=== PATIENT | female | born 1985 | race Caucasian/White ===

== ENCOUNTER 2016-09-15 14:48 | Emergency (ER) | payer SELFPAY ==
[2016-09-15] MEDS ORDERED: IPRATROPIUM/ALBUTEROL 3 ML VIAL NEB ONE (15:17)
--- NOTE | 2016-09-15 15:20 | ED.PDOC ---
History of Present Illness - General Chief Complaint: Respiratory Problem Stated Complaint: cough,poss fever Time Seen by Provider: 09/15/16 15:17 Source: patient Exam Limitations: no limitations - History of Present Illness Comments: PT REPORTS FEW DAY HISTORY OF COUGH AND PLEURITIC CHEST PAIN. PT REPORTS SICK CONTACT AT WORK. PT HAS HISTORY OF ASTHMA AND HAS BEEN USING NEBS AT HOME NEEDED. Cough Quality/Degree: moderate, productive cough Possible Cause: illness exposure Improving Factors: nothing Worsening Factors: nothing Associated Symptoms: chest pain/soreness, fever/chills, shortness of breath Respiratory Risk Factors: exposure to illness Allergies/Adverse Reactions: Allergies Sulfa Drugs Allergy (Intermediate, Verified 04/08/16 21:05) Levofloxacin [From Levaquin] Allergy (Verified 04/08/16 21:05) Home Medications: Ambulatory Orders Azithromycin [Zithromax Z-Steven] 1 ea PO DAILY #1 pack 09/15/16 Benzonatate Perles [Tessalon Perles] 100 mg PO TID PRN #20 cap 09/15/16 Review of Systems - Review of Systems Constitutional: States: see HPI, chills, fever Respiratory: States: see HPI, cough, short of breath Cardiology: States: see HPI, chest pain. Denies: palpitations Gastrointestinal/Abdominal: Denies: abdominal pain, constipation Musculoskeletal: Denies: back pain, muscle pain Skin: Denies: change in color, lesions Past Medical History (General) - Patient Medical History Hx Seizures: No Hx Stroke: No Hx Dementia: No Hx Asthma: Yes Hx of COPD: No Hx Cardiac Disorders: No Hx Congestive Heart Failure: No Hx Pacemaker: No Hx Hypertension: No Hx Thyroid Disease: No Hx Diabetes: No Hx Gastroesophageal Reflux: No Hx Renal Disease: No Hx Cancer: No Hx of HIV: No Hx Hepatitis C: No Hx MRSA: No Other Surgeries:: - Vaccination History Hx Tetanus, Diphtheria Vaccination: Yes Hx Influenza Vaccination: Yes Hx Pneumococcal Vaccination: No - Social History Hx Tobacco Use: No Hx Chewing Tobacco Use: No Hx Alcohol Use: No Hx Substance Use: No Hx Substance Use Treatment: No Hx Depression: No Hx Physical Abuse: No Hx Emotional Abuse: No Hx Suspected Abuse: No - Female History Patient : No Family Medical History - Family History Mother Living Status: Still Living Hx Family Hypertension: Yes Hx Family Diabetes: Yes Physical Exam - Physical Exam General Appearance: Alert, No apparent distress ENT Exam: normal ENT inspection Neck: non-tender, full range of motion Respiratory: no respiratory distress, other - COARSE BREATH SOUNDS Cardiovascular/Chest: regular rate, rhythm, no murmur Gastrointestinal/Abdominal: non tender, soft Neurologic: normal mood/affect, oriented x 3 Skin Exam: normal color, warm/dry Progress - Progress Progress: 09/15/16 15:54 PT REPORTS SOME IMPROVEMENT AFTER NEB IN THE ED. CXR FINDINGS DISCUSSED WITH PT. WITH PLACE PT ON Z PACK AND RECOMMEND CONTINUED NEBS AT HOME NEEDED. Departure - Departure Clinical Impression: Bronchitis Time of Disposition: 15:55 Disposition: Discharge to Home or Self Care Condition: Good Departure Forms: ED Discharge - Pt. Copy, Patient Portal Self Enrollment Instructions: DI for Bronchiolitis Diet: resume usual diet Prescriptions: Benzonatate Perles [Tessalon Perles] 100 mg PO TID PRN #20 cap PRN Reason: Cough Azithromycin [Zithromax Z-Steven] 1 ea PO DAILY #1 pack Home Medications: Ambulatory Orders Azithromycin [Zithromax Z-Steven] 1 ea PO DAILY #1 pack 09/15/16 Benzonatate Perles [Tessalon Perles] 100 mg PO TID PRN #20 cap 09/15/16
--- NOTE | 2016-09-15 15:42 | RAD ---
EXAM DESCRIPTION: XR CHEST 1 VIEW CLINICAL HISTORY: COUGH/SOB COMPARISON: August 31, 2012 FINDINGS: The cardiomediastinal silhouette is unremarkable. There is no airspace consolidation or pleural effusion. The bronchovascular markings are within normal limits. The lung volumes are at the upper limits of normal range. There is no pneumothorax or acute fracture. IMPRESSION: No pneumonia or other acute intrathoracic abnormality. Upper normal lung volumes. The possibility of asthma should be considered. Electronically signed by: Molina Butler DO 09/15/2016 15:40
[2016-09-15 16:00] VITALS: O2SAT 100
[2016-09-15 16:07] VITALS: BP 102/71; TEMP 97.8
== END 2016-09-15 16:04 | disposition home or self-care (01) ==
LOC: ER 14:48
DX: J40 Bronchitis, not specified as acute or chronic (principal); Z88.2 Allergy status to sulfonamides; Z88.3 Allergy status to other anti-infective agents; J45.909 Unspecified asthma, uncomplicated; Z79.899 Other long term (current) drug therapy
CPT/HCPCS: 71010; 94640; J7620

== ENCOUNTER 2017-05-21 17:35 | Emergency (ER) | payer SELFPAY ==
[2017-05-21 18:35] VITALS: TEMP 98.6
--- NOTE | 2017-05-21 18:36 | ED.PDOC ---
History of Present Illness - General Chief Complaint: Lower Extremity Injury Stated Complaint: left foot pain Time Seen by Provider: 05/21/17 18:34 Source: patient, RN notes reviewed, Vital Signs reviewed Exam Limitations: no limitations - History of Present Illness Initial Comments: Patient comes in with pain on the top of her foot. 3 days ago a ramp @ the loading dock fell onto her foot. She has been treating with ice and elevation but still swollen and painful. She is also having some numbness in her toes and bruising along the side of her great toe. Occurred: other - 3 days ago Pain - Lower Extremity: moderate: Left Foot Method of Injury: direct blow Improving Factors: cold therapy, rest Worsening Factors: movement Allergies/Adverse Reactions: Allergies Sulfa Drugs Allergy (Intermediate, Verified 05/21/17 18:35) Levofloxacin [From Levaquin] Allergy (Verified 05/21/17 18:35) Home Medications: Ambulatory Orders Azithromycin [Zithromax Z-Steven] 1 ea PO DAILY #1 pack 09/15/16 Benzonatate Perles [Tessalon Perles] 100 mg PO TID PRN #20 cap 09/15/16 Review of Systems - Review of Systems Constitutional: States: no symptoms reported Respiratory: States: no symptoms reported Cardiology: States: no symptoms reported Musculoskeletal: States: see HPI Skin: States: see HPI Neurological: States: numbness. Denies: headache, paresthesia, tingling, weakness All other Systems: No Change from Baseline Past Medical History (General) - Patient Medical History Hx Seizures: No Hx Stroke: No Hx Dementia: No Hx Asthma: Yes Hx of COPD: No Hx Cardiac Disorders: No Hx Congestive Heart Failure: No Hx Pacemaker: No Hx Hypertension: No Hx Thyroid Disease: No Hx Diabetes: No Hx Gastroesophageal Reflux: No Hx Renal Disease: No Hx Cancer: No Hx of HIV: No Hx Hepatitis C: No Hx MRSA: No - Vaccination History Hx Tetanus, Diphtheria Vaccination: Yes Hx Influenza Vaccination: Yes Hx Pneumococcal Vaccination: No - Social History Hx Tobacco Use: No Hx Chewing Tobacco Use: No Hx Alcohol Use: No Hx Substance Use: No Hx Substance Use Treatment: No Hx Depression: No Hx Physical Abuse: No Hx Emotional Abuse: No Hx Suspected Abuse: No - Female History Patient : No Family Medical History - Family History Mother Living Status: Still Living Hx Family Hypertension: Yes Hx Family Diabetes: Yes Physical Exam - Physical Exam General Appearance: Alert, Comfortable, No apparent distress, Well Developed, Well Groomed, Well Hydrated, Well Nourished Cardiovascular/Respiratory: normal peripheral pulses, no respiratory distress Leg: normal inspection, non-tender, no evidence of injury, normal ROM Knee: normal inspection Ankle: normal inspection, non-tender, no evidence of injury, normal ROM Foot: bone tenderness, ecchymosis, limited ROM, soft tissue tenderness, swelling , other - Dorsum of L foot is swollen, tender and bruised. Moves all toes but limited due to pain. Brisck capillary refill all toes. Bruising along side of great toe. Neuro/Tendon: normal motor functions, normal tendon functions, responds to pain , no evidence tendon injury, sensory deficit - Slightly decreased sensation to light touch of toes. Mental Status: alert, oriented x 3 Skin: normal color - Normal except for L foot, warm/dry Comments: Vital Signs 05/21/17 18:25 Temperature 98.6 F Pulse Rate [ 78 pulse ox] Respiratory 18 Rate Blood Pressure 115/75 [Left Arm] O2 Sat by Pulse 98 Oximetry Progress - EKG/XRAY/CT XRAY: L foot: No fracture per Radiologist Departure - Departure Clinical Impression: Contusion of foot, left Qualifiers: Encounter type: initial encounter Qualified Code(s): S90.32XA - Contusion of left foot, initial encounter Time of Disposition: 19:27 Disposition: Discharge to Home or Self Care Condition: Good Departure Forms: ED Discharge - Pt. Copy, Patient Portal Self Enrollment Instructions: DI for Contusion Diet: resume usual diet Activity: increase activity as tolerated Referrals: Bernie Seaman NP [Primary Care Provider] - 1-2 Weeks Home Medications: Ambulatory Orders Azithromycin [Zithromax Z-Steven] 1 ea PO DAILY #1 pack 09/15/16 Benzonatate Perles [Tessalon Perles] 100 mg PO TID PRN #20 cap 09/15/16
--- NOTE | 2017-05-21 19:14 | RAD ---
EXAM DESCRIPTION: Foot,Left 3 Views CLINICAL HISTORY: 31 years ,Female Loading ramp dropped on her foot, pain COMPARISON: None. TECHNIQUE: LEFT foot, Three view FINDINGS: No acute fractures or dislocations are identified. No osseous destructive lesions. No radiopaque foreign object noted. There is deformity of the head of the fifth metatarsal which likely reflects a chronic injury. No significant ankle effusion noted. IMPRESSION: No acute fracture or dislocation is identified. Electronically signed by: Nola Briceno 05/21/2017 7:13 PM CDT
[2017-05-21 19:32] VITALS: BP 112/70; O2SAT 99
== END 2017-05-21 19:34 | disposition home or self-care (01) ==
LOC: ER 17:35
DX: S90.32XA Contusion of left foot, initial encounter (principal); Z88.2 Allergy status to sulfonamides; Z88.3 Allergy status to other anti-infective agents; W20.8XXA Other cause of strike by thrown, projected or falling object, initial encounter; Y92.9 Unspecified place or not applicable

== ENCOUNTER 2018-02-22 13:23 | Emergency (ER) | payer MEDICAID, OTHER ==
[2018-02-22] MEDS ORDERED: KETOROLAC TROMETHAMINE INJ 30 MG/ML VIAL IV ONE (15:01)
[2018-02-22] MEDS ORDERED: DEXAMETHASONE INJ 4 MG/ML VIAL IV ONE (15:01)
[2018-02-22] MEDS ORDERED: LACTATED RINGERS 1,000 ML IVS ONE (15:01)
[2018-02-22] MEDS ORDERED: PROMETHAZINE HCL INJ 25 MG/ML VIAL IM ONE (15:01)
--- NOTE | 2018-02-22 15:01 | ED.PDOC ---
History of Present Illness - General Chief Complaint: Headache Stated Complaint: Headache Time Seen by Provider: 02/22/18 14:42 Source: patient - History of Present Illness Initial Comments: Carole Gonsalez 32 y/o female stated that she has dull headache on her left side head and earache for the last 2 days not getting chuck.No blurry vision ,no fever ,no chills. Timing/Duration: other - 2 days Severity: moderate Improving Factors: nothing Worsening Factors: nothing Associated Symptoms: cough Allergies/Adverse Reactions: Allergies Sulfa Drugs Allergy (Intermediate, Verified 05/21/17 18:35) Levofloxacin [From Levaquin] Allergy (Verified 05/21/17 18:35) Home Medications: Ambulatory Orders Azithromycin [Zithromax Z-Steven] 1 ea PO DAILY #1 pack 09/15/16 Benzonatate Perles [Tessalon Perles] 100 mg PO TID PRN #20 cap 09/15/16 Azithromycin [Zithromax Z-Steven] 1 ea PO DAILY #1 pack 02/22/18 Promethazine Tab [Phenergan Tablet] 25 mg PO .Q4H #14 tab 02/22/18 predniSONE 10 mg PO BID #10 tab 02/22/18 Review of Systems - Review of Systems Constitutional: States: no symptoms reported EENTM: States: no symptoms reported Respiratory: States: no symptoms reported Neurological: States: headache All other Systems: Reviewed and Negative, No Change from Baseline Past Medical History (General) - Patient Medical History Hx Seizures: No Hx Stroke: No Hx Dementia: No Hx Asthma: Yes Hx of COPD: No Hx Cardiac Disorders: No Hx Congestive Heart Failure: No Hx Pacemaker: No Hx Hypertension: No Hx Thyroid Disease: No Hx Diabetes: No Hx Gastroesophageal Reflux: No Hx Renal Disease: No Hx Cancer: No Hx of HIV: No Hx Hepatitis C: No Hx MRSA: No Surgical History: no surgical history - Vaccination History Hx Tetanus, Diphtheria Vaccination: Yes Hx Influenza Vaccination: Yes - 2017 Hx Pneumococcal Vaccination: No - Social History Hx Tobacco Use: Yes Hx Chewing Tobacco Use: No Hx Alcohol Use: No Hx Substance Use: No Hx Substance Use Treatment: No Hx Depression: No Hx Physical Abuse: No Hx Emotional Abuse: No Hx Suspected Abuse: No - Activities of Daily Living Patient Lives Alone: No - Female History Patient : No - IUD Family Medical History - Family History Mother Living Status: Still Living Hx Family Hypertension: Yes Hx Family Diabetes: Yes Physical Exam - Physical Exam General Appearance: Anxious, No apparent distress Eye Exam: bilateral normal Ears, Nose, Throat: hearing grossly normal, normal ENT inspection, normal pharynx, abnormal TM (L) - grayish looking Neck: non-tender, supple, other - no meningeal signs Respiratory: lungs clear, normal breath sounds Cardiovascular/Chest: normal peripheral pulses, regular rate, rhythm, no murmur Peripheral Pulses: radial,right: 2+, radial,left: 2+ Gastrointestinal/Abdominal: normal bowel sounds, non tender, soft, no organomegaly Back Exam: normal inspection, no CVA tenderness, no vertebral tenderness Extremity: no pedal edema, no calf tenderness Neurologic: alert, oriented x 3 Skin Exam: normal color, warm/dry Progress - Progress Progress: 02/22/18 16:51 Vital Signs - 24 hr 02/22/18 13:39 Temperature 98.5 F Pulse Rate [ 81 Left Radial] Respiratory 20 Rate Blood Pressure 126/81 [Left Arm] O2 Sat by Pulse 98 Oximetry - Results/Orders Results/Orders: 02/22/18 15:01 URINALYSIS Stat Laboratory Results - last 24 hr 02/22/18 02/22/18 13:50 13:50 WBC 4.3 L RBC 4.04 L Hgb 12.8 Hct 37.0 MCV 91.7 MCH 31.6 H MCHC 34.5 RDW 11.8 Plt Count 194 MPV 9.1 Absolute Neuts (auto) 2.20 Absolute Lymphs (auto) 1.60 Absolute Monos (auto) 0.50 Absolute Eos (auto) 0.00 Absolute Basos (auto) 0.10 Neutrophils % 50.7 Lymphocytes % 35.9 Monocytes % 11.4 H Eosinophils % 0.6 L Basophils % 1.4 Sodium 140 Potassium 3.2 L Chloride 108 Carbon Dioxide 26 Anion Gap 9.2 L BUN 6 L Creatinine 0.76 BUN/Creatinine Ratio 7.9 L Random Glucose 82 Serum Osmolality 276.1 Calcium 8.9 Total Bilirubin 0.7 AST 13 ALT 9 L Alkaline Phosphatase 37 L Serum Total Protein 6.9 Albumin 4.1 Globulin 2.8 Albumin/Globulin Ratio 1.5 Departure - Departure Clinical Impression: Headache Qualifiers: Headache type: unspecified Headache chronicity pattern: unspecified pattern Intractability: not intractable Qualified Code(s): R51 - Headache Middle ear effusion Qualifiers: Laterality: left Qualified Code(s): H65.92 - Unspecified nonsuppurative otitis media, left ear Time of Disposition: 16:53 Disposition: Discharge to Home or Self Care Condition: Good Departure Forms: ED Discharge - Pt. Copy, Patient Portal Self Enrollment Instructions: DI for Headache Referrals: Bernie Seaman NP [Primary Care Provider] - 1-2 Weeks Prescriptions: Azithromycin [Zithromax Z-Steven] 1 ea PO DAILY #1 pack predniSONE 10 mg PO BID #10 tab Promethazine Tab [Phenergan Tablet] 25 mg PO .Q4H #14 tab Home Medications: Ambulatory Orders Azithromycin [Zithromax Z-Steven] 1 ea PO DAILY #1 pack 09/15/16 Benzonatate Perles [Tessalon Perles] 100 mg PO TID PRN #20 cap 09/15/16 Azithromycin [Zithromax Z-Steven] 1 ea PO DAILY #1 pack 02/22/18 Promethazine Tab [Phenergan Tablet] 25 mg PO .Q4H #14 tab 02/22/18 predniSONE 10 mg PO BID #10 tab 02/22/18 Additional Instructions: Follow up with primary Md 23 February 2018 as needed
[2018-02-22] MEDS ORDERED: ORPHENADRINE CITRATE 30 MG/ML AMP IV ONE (15:03)
[2018-02-22 17:24] VITALS: BP 109/73; TEMP 99.3; O2SAT 95
== END 2018-02-22 17:05 | disposition home or self-care (01) ==
LOC: ER 13:23
DX: R51 Headache (principal); H65.92 Unspecified nonsuppurative otitis media, left ear; J45.909 Unspecified asthma, uncomplicated; F17.200 Nicotine dependence, unspecified, uncomplicated; Z88.2 Allergy status to sulfonamides; Z88.1 Allergy status to other antibiotic agents
CPT/HCPCS: 36415; 80053; 85025; J1100; J1885; J2360; J2550; J7120

== ENCOUNTER 2018-03-02 07:51 | Emergency (ER) | payer MEDICAID, OTHER ==
[2018-03-02 08:21] VITALS: TEMP 98
--- NOTE | 2018-03-02 08:34 | ED.PDOC ---
History of Present Illness - General Chief Complaint: ENT Problem Stated Complaint: L ear discomfort Time Seen by Provider: 03/02/18 08:21 Source: patient Exam Limitations: no limitations - History of Present Illness Initial Comments: patient comes in with left sided ear and posterior ear pain. Patient states it started last when she came to the emergency room was given antibiotics for an ear infection. Patient states it has not improved despite steroids and azithromycin. Patient states the pain is still moderate in severity with nothing improving. It is worse with touch to the area. Patient states the pain is now going all the way down her jaw and she is not getting any relief. She has had some subjective fever no chills no nausea or vomiting. She is otherwise in her usual state of health. She does have a history of asthma and bronchitis. She has had 3 C-sections and tympanostomy tubes with a history of recurrent ear infections in that left ear. Patient does use the IUD for control. Timing/Duration: gradual EENT Location: ear (L) Prearrival Treatment: prescription meds Improving Factors: nothing Worsening Factors: other - touch Associated Symptoms: fever Allergies/Adverse Reactions: Allergies Sulfa Drugs Allergy (Intermediate, Verified 03/02/18 08:38) Levofloxacin [From Levaquin] Allergy (Verified 03/02/18 08:38) Home Medications: Ambulatory Orders NK [NK] 03/02/18 Review of Systems - Review of Systems Constitutional: States: fever. Denies: chills, weakness EENTM: States: ear pain. Denies: eye pain, nose pain, throat pain Respiratory: States: no symptoms reported. Denies: cough, wheezing Cardiology: States: no symptoms reported. Denies: chest pain Gastrointestinal/Abdominal: States: no symptoms reported. Denies: abdominal pain, diarrhea, nausea, vomiting Genitourinary: States: no symptoms reported Musculoskeletal: States: no symptoms reported Past Medical History (General) - Patient Medical History Hx Seizures: No Hx Stroke: No Hx Dementia: No Hx Asthma: Yes Hx of COPD: No Hx Cardiac Disorders: No Hx Congestive Heart Failure: No Hx Pacemaker: No Hx Hypertension: No Hx Thyroid Disease: No Hx Diabetes: No Hx Gastroesophageal Reflux: No Hx Renal Disease: No Hx Cancer: No Hx of HIV: No Hx Hepatitis C: No Hx MRSA: No - Vaccination History Hx Tetanus, Diphtheria Vaccination: Yes Hx Influenza Vaccination: Yes - 2017 Hx Pneumococcal Vaccination: No - Social History Hx Tobacco Use: Yes Hx Chewing Tobacco Use: No Hx Alcohol Use: No Hx Substance Use: No Hx Substance Use Treatment: No Hx Depression: No Hx Physical Abuse: No Hx Emotional Abuse: No Hx Suspected Abuse: No - Female History Patient : No - IUD Family Medical History - Family History Mother Living Status: Still Living Hx Family Hypertension: Yes Hx Family Diabetes: Yes Physical Exam - Physical Exam General Appearance: No apparent distress Eye Exam: bilateral normal Ear Exam: right ear: auricle normal, canal normal, TM normal, left ear: other - L TM normal with no erythema or fluid. TTP at the mastoid with tenderness with touch to the pinna as well. No anterior lymphadnopathy. OP has no tooth lesions and no erythema or edema or fluctulance Throat Exam: normal mouth inspection, pharynx normal Neck: non-tender, full range of motion, supple, normal inspection Cardiovascular/Respiratory: regular rate, rhythm, no M/R/G, no JVD, normal breath sounds, no respiratory distress Abdominal Exam: non-tender Neurologic: alert, oriented x 3 Skin Exam: normal color Progress - Progress Progress: 03/02/18 10:12 Laboratory Results Serum HCG, Qual Negative 03/02/18 08:52 Patient Name: LIGIA LU Gender: Female Date of : 1985 Referring Physician: LOGAN DELGADO Organization: [facility] Accession Number: [id number] Requested Date: March 02, 2018 08:29 Report Status: Final Requested Procedure: 1 Procedure Description: Head Modality: CT Findings Reporting MD: Price Viera Fellow MD: Not available Dictation Time: Home Help Aide: Not available Fun House Attendant Date: EXAM DESCRIPTION: Head: Computed Tomography. CLINICAL HISTORY: ?mastoiditis Left COMPARISON: None. TECHNIQUE: Non-helical axial scans through the skull and brain, at 5.0 mm intervals, non-contrast. Axial 2.5 mm and sagittal and coronal 2.0 mm reconstructions. Total Exam DLP: 859.97 mGy-cm. This exam was performed according to our departmental dose-optimization program which includes automated exposure control, adjustment of the mA and/or kV according to patient size and/or use of iterative reconstruction technique; to reduce radiation dose to as low as reasonably achievable (ALARA). FINDINGS: No hemorrhage, no mass-effect, and no midline shift. Normal armstrong-white matter differentiation. No abnormal radiodense objects in the brain parenchyma. Bilateral prominent perivascular spaces are noted. Vascular calcifications not present; physiologic calcifications in the pineal gland and choroid plexus. No effacement or displacement of the ventricles, CSF spaces, or subdural spaces. No extra axial fluid collection or hemorrhage. No gross abnormalities of the bony calvarium. Included paranasal sinuses and mastoid air cells are well - aerated. Bilateral marcus bullosa in the middle turbinates. IMPRESSION: 1. No hemorrhage, no mass effect, no midline shift. Bilateral mastoid air cells are unremarkable. Bilateral marcus bullosa in the middle turbinates. 2. CT scans are insensitive for detecting small CVAs in the first 24 hours after onset. Evaluation of the brain stem is also limited. If symptoms persist, consider NON-EMERGENT MRI scan of the brain with diffusion imaging. Electronically signed by: Price Viera discussed with patient lab results and CAT scan. Do not see any evidence of infection apparent nasal sinuses or mastoid air cells. Exam is completely clear within normal sign tympanic membrane. Patient states her primarily concerned with the amount of pressure might cause a rupture and she had had tubes placed him in the past. However this time I do not see any infection. We 've given her Toradol 60 mg and asked her to take ibuprofen 800 mg twice a day [id number] at home. She is to follow-up with a dentist in the next week to make sure is not dental although her exam here is fairly benign. She does still have her wisdom teeth. 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 Copy Instructions: DI for Ear Pain-Adult Diet: regular diet Referrals: Bernie Seaman NP [Primary Care Provider] - 1-2 Weeks Home Medications: Ambulatory Orders NK [NK] 03/02/18 Additional Instructions: Take OTC IBU 800 mg po BID x 7 days and follow up with dentist. If not dental cause and pain persists after 7 days should follow up with PCP to recheck ear.
--- NOTE | 2018-03-02 10:06 | CT ---
EXAM DESCRIPTION: Head: Computed Tomography. CLINICAL HISTORY: ?mastoiditis Left COMPARISON: None. TECHNIQUE: Non-helical axial scans through the skull and brain, at 5.0 mm intervals, non-contrast. Axial 2.5 mm and sagittal and coronal 2.0 mm reconstructions. Total Exam DLP: 859.97 mGy-cm. This exam was performed according to our departmental dose-optimization program which includes automated exposure control, adjustment of the mA and/or kV according to patient size and/or use of iterative reconstruction technique; to reduce radiation dose to as low as reasonably achievable (ALARA). FINDINGS: No hemorrhage, no mass-effect, and no midline shift. Normal armstrong-white matter differentiation. No abnormal radiodense objects in the brain parenchyma. Bilateral prominent perivascular spaces are noted. Vascular calcifications not present; physiologic calcifications in the pineal gland and choroid plexus. No effacement or displacement of the ventricles, CSF spaces, or subdural spaces. No extra axial fluid collection or hemorrhage. No gross abnormalities of the bony calvarium. Included paranasal sinuses and mastoid air cells are well - aerated. Bilateral marcus bullosa in the middle turbinates. IMPRESSION: 1. No hemorrhage, no mass effect, no midline shift. Bilateral mastoid air cells are unremarkable. Bilateral marcus bullosa in the middle turbinates. 2. CT scans are insensitive for detecting small CVAs in the first 24 hours after onset. Evaluation of the brain stem is also limited. If symptoms persist, consider NON-EMERGENT MRI scan of the brain with diffusion imaging. Electronically signed by: Price Viera MD 03/02/2018 10:05 AM CDT
[2018-03-02] MEDS ORDERED: KETOROLAC TROMETHAMINE INJ 60 MG/2 ML VIAL IM ONE (10:13)
[2018-03-02 10:45] VITALS: BP 108/67; O2SAT 99
== END 2018-03-02 10:46 | disposition home or self-care (01) ==
LOC: ER 07:51
DX: M26.622 Arthralgia of left temporomandibular joint (principal); J45.909 Unspecified asthma, uncomplicated; Z88.2 Allergy status to sulfonamides; Z88.1 Allergy status to other antibiotic agents; Z87.891 Personal history of nicotine dependence
CPT/HCPCS: 36415; 70450; 84703; J1885

== ENCOUNTER → 2018-03-22 | Outpatient (CLI) | payer OTHER ==
--- NOTE | 2018-03-22 13:31 | US ---
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 COMPARISON: None. FINDINGS: Thyroid size: Right 5.4 x 1.7 x 1.5 cm. Left 5.7 x 1.6 x 1.3 cm. Isthmus 0.48 cm thickness. Texture: Heterogeneous. Estimated total number of nodules >/=1 cm: 3 Number of spongiform nodules >/=2 cm not described below (TR1): 0 Number of mixed cystic and solid nodules >/=1.5 cm not described below (TR2): 0 Nodule #: 1 Maximum size: 2.9 cm; All dimensions 1.3 x 0.9 cm Location: right; mid Composition: mixed cystic and solid (1). Vascular periphery. Echogenicity: hypoechoic (2) Shape: not [id number] (0) Margins: smooth (0) Echogenic foci: none (0) ACR TI-RADS total points: 3. ACR TI-RADS risk category: TR3 (3 points) ACR TI-RADS recommendation: Ultrasound-guided fine needle aspiration Nodule #: 2 Maximum size: 0.9 cm; All dimensions 0.8 x 0.8 cm Location: right; lower Composition: mixed cystic and solid (1). Vascular periphery. Echogenicity: hypoechoic (2) Shape: not iuxskj-gfci-oaqg (0) Margins: ill-defined (0) Echogenic foci: none (0) ACR TI-RADS total points: 3. ACR TI-RADS risk category: TR3 (3 points) ACR TI-RADS recommendation: No further follow-up Nodule #: 3 Maximum size: 2.7 cm; All dimensions 1.6 x 1.0 cm Location: left; mid Composition: solid/almost completely solid (2). Vascular periphery. Echogenicity: hypoechoic (2) Shape: not cetttj-fmmw-jzhz (0) Margins: smooth (0) Echogenic foci: none (0) ACR TI-RADS total points: 4. ACR TI-RADS risk category: TR4 (4-6 points) ACR TI-RADS recommendation: Ultrasound-guided fine needle aspiration Nodule #: 4 Maximum size: 1.7 cm; All dimensions 1.2 x 0.7 cm Location: left; mid Composition: solid/almost completely solid (2). Vascular periphery. Echogenicity: isoechoic (1) Shape: not dndkzj-wmmg-xugl (0) Margins: smooth (0) Echogenic foci: none (0) ACR TI-RADS total points: 3. ACR TI-RADS risk category: TR3 (3 points) ACR TI-RADS recommendation: Follow-up ultrasound in 1 year In the soft tissue surrounding the thyroid, no distinct solid mass or cyst. No large calcifications or parenchymal edema. No overlying skin changes. No abnormal vascularity. IMPRESSION: 1. 2.9 cm partially cystic partially solid nodule (# 1) in the mid right lobe. ACR TI RADS risk category TR 3. Due to size greater than 2.5 cm, ultrasound-guided fine-needle aspiration sampling recommended. Please see recommendations below.* 2. 2.7 cm hypoechoic solid nodule (# 3) in the mid left lobe. ACR TI RADS risk category TR 4. Ultrasound-guided fine-needle aspiration sampling recommended. 3. 1.7 cm isoechoic solid nodule (# 4) in the lower left lobe. ACR TI RADS risk category TR 3. Since greatest diameter is less than 2.5 cm, one year ultrasound follow-up is recommended. Please see recommendations below.* 4. Partially cystic partially solid nodule (# 2) in the lower right lobe with ACR TI RADS risk category TR 3. Due to smaller size, no ultrasound follow-up is recommended. 5. The soft tissues around the thyroid gland are unremarkable. *ACR TI-RADS recommendations: TR5 (>/=7 points) - FNA if >/=1 cm, follow-up if 0.5 - 0.9 cm every year for 5 years TR4 (4-6 points) - FNA if >/=1.5 cm, follow-up if 1 - 1.4 cm in 1, 2, 3 and 5 years TR3 (3 points) - FNA if >/=2.5 cm, follow -up if 1.5 - 2.4 cm in 1, 3 and 5 years TR2 (2 points) and TR1 (0 points) - No FNA or follow-up * ACR TI-RADS recommends that no more than two nodules with the highest ACR TI-RADS total point should be biopsied and no more than four nodules should be followed. Electronically signed by: Price Viera MD 03/22/2018 1:30 PM CDT
== END ==
LOC: US 09:30
PROVIDERS: ATTEND Obstetrics & Gynecology
DX: E04.9 Nontoxic goiter, unspecified (principal)

== ENCOUNTER 2018-05-25 17:16 | Emergency (ER) | payer OTHER ==
--- NOTE | 2018-05-25 17:51 | ED.PDOC ---
History of Present Illness - General Chief Complaint: General Stated Complaint: Episodes of passing out, skin irritation Time Seen by Provider: 05/25/18 17:30 Source: patient Exam Limitations: no limitations - History of Present Illness Initial Comments: Carole Gonsalez 32 y/o female stated that she passed out yesterday and landed on back of her head stating as she was going to her childrens room getting them ready for school .She stated could not remember passing out and her child tried to wake and get her up.Came to ER with dull pain on left side of head but no N/V ,no blurry vision at this time .More awake alert,speech fluent ,no numbness or weakness.Stated had previous episode in the past and recently eyes hurt when looking at flickering lights. Timing/Duration: 4-6 hours Severity: moderate Improving Factors: nothing Worsening Factors: nothing Associated Symptoms: syncope Allergies/Adverse Reactions: Allergies Sulfa Drugs Allergy (Intermediate, Verified 05/25/18 17:33) Levofloxacin [From Levaquin] Allergy (Verified 05/25/18 17:33) Home Medications: Ambulatory Orders NK [NK] 03/02/18 Review of Systems - Review of Systems Constitutional: States: no symptoms reported EENTM: States: no symptoms reported Respiratory: States: no symptoms reported Cardiology: States: no symptoms reported Gastrointestinal/Abdominal: States: no symptoms reported Genitourinary: States: no symptoms reported Musculoskeletal: States: no symptoms reported Skin: States: no symptoms reported Neurological: States: see HPI Past Medical History (General) - Patient Medical History Hx Seizures: No Hx Stroke: No Hx Dementia: No Hx Asthma: Yes Hx of COPD: No Hx Cardiac Disorders: No Hx Congestive Heart Failure: No Hx Pacemaker: No Hx Hypertension: No Hx Thyroid Disease: No Hx Diabetes: No Hx Gastroesophageal Reflux: No Hx Renal Disease: No Hx Cancer: No Hx of HIV: No Hx Hepatitis C: No Hx MRSA: No Surgical History: no surgical history - Vaccination History Hx Tetanus, Diphtheria Vaccination: Yes Hx Influenza Vaccination: Yes - 2017 Hx Pneumococcal Vaccination: No - Social History Hx Tobacco Use: Yes Hx Chewing Tobacco Use: No Hx Alcohol Use: No Hx Substance Use: No Hx Substance Use Treatment: No Hx Depression: No Hx Physical Abuse: No Hx Emotional Abuse: No Hx Suspected Abuse: No - Activities of Daily Living Patient Lives Alone: No - Female History Patient : No - IUD Family Medical History - Family History Mother Living Status: Still Living Hx Family Hypertension: Yes Hx Family Diabetes: Yes Physical Exam - Physical Exam General Appearance: Alert, Comfortable, No apparent distress, Other - tenderness left side head tempero occipital area Eye Exam: bilateral normal Ears, Nose, Throat: hearing grossly normal, normal ENT inspection Neck: non-tender, full range of motion, supple, normal inspection Respiratory: lungs clear, normal breath sounds Cardiovascular/Chest: normal peripheral pulses, regular rate, rhythm, no murmur Peripheral Pulses: radial,right: 2+, radial,left: 2+ Gastrointestinal/Abdominal: non tender, soft, no organomegaly Extremity: no pedal edema, no calf tenderness Neurologic: human resources administrator II-XII nml as tested, no motor/sensory deficits, alert, oriented x 3, other - negative romberg Skin Exam: normal color, warm/dry Progress - Progress Progress: 05/25/18 18:40 Vital Signs - 8 hr 05/25/18 18:18 Pulse Rate [ 83 apical] Respiratory 18 Rate Blood Pressure 114/63 [Left Arm] O2 Sat by Pulse 100 Oximetry - Results/Orders Results/Orders: 05/25/18 18:15 EKG STAT Laboratory Results - last 24 hr 05/25/18 05/25/18 05/25/18 18:01 18:01 18:01 WBC 6.4 RBC 3.98 L Hgb 12.5 Hct 37.2 MCV 93.6 MCH 31.4 H MCHC 33.5 RDW 12.4 Plt Count 177 MPV 8.0 Absolute Neuts (auto) 4.20 Absolute Lymphs (auto) 1.40 Absolute Monos (auto) 0.70 Absolute Eos (auto) 0.00 Absolute Basos (auto) 0.00 Neutrophils % 65.8 Lymphocytes % 22.4 Monocytes % 10.4 H Eosinophils % 0.7 L Basophils % 0.7 Sodium 139 Potassium 3.6 Chloride 106 Carbon Dioxide 27 Anion Gap 9.6 L BUN 10 Creatinine 0.75 BUN/Creatinine Ratio 13.3 Random Glucose 83 Serum Osmolality 275.7 Calcium 8.7 Total Bilirubin 0.3 AST 17 ALT 9 L Alkaline Phosphatase 39 L Serum Total Protein 6.8 Albumin 4.0 Globulin 2.8 Albumin/Globulin Ratio 1.4 Serum HCG, Qual Urine Color Urine Appearance Urine pH Ur Specific [place] Urine Protein Urine Glucose (UA) Urine Ketones Urine Blood Urine Nitrite Urine Bilirubin Urine Urobilinogen Ur Leukocyte Esterase Urine RBC Urine WBC Ur Epithelial Cells Urine Bacteria Urine Opiates Screen Positive H Urine Barbiturates Positive H Ur Phencyclidine Scrn Negative U Amphetamin/Meth Scrn Negative U Benzodiazepines Scrn Positive H U Cocaine Metab Screen Negative U Cannabinoids Screen Negative 05/25/18 05/25/18 18:01 18:22 WBC RBC Hgb Hct MCV MCH MCHC RDW Plt Count MPV Absolute Neuts (auto) Absolute Lymphs (auto) Absolute Monos (auto) Absolute Eos (auto) Absolute Basos (auto) Neutrophils % Lymphocytes % Monocytes % Eosinophils % Basophils % Sodium Potassium Chloride Carbon Dioxide Anion Gap BUN Creatinine BUN/Creatinine Ratio Random Glucose Serum Osmolality Calcium Total Bilirubin AST ALT Alkaline Phosphatase Serum Total Protein Albumin Globulin Albumin/Globulin Ratio Serum HCG, Qual Negative Urine Color Yellow Urine Appearance Clear Urine pH 6.0 Ur Specific [place] 1.015 Urine Protein Negative Urine Glucose (UA) Negative Urine Ketones Negative Urine Blood Negative Urine Nitrite Negative Urine Bilirubin Negative Urine Urobilinogen 0.2 Ur Leukocyte Esterase Negative Urine RBC 0-1 Urine WBC 3-5 H Ur Epithelial Cells 5-10 Urine Bacteria 4+ H Urine Opiates Screen Urine Barbiturates Ur Phencyclidine Scrn U Amphetamin/Meth Scrn U Benzodiazepines Scrn U Cocaine Metab Screen U Cannabinoids Screen Discuss test results with patient -labs/head ct were all within normal that her symptoms might be a form of absence seizure episodes and needs to have primary Md referred her to neurologist. - EKG/XRAY/CT EKG: Sinus, no ST T wave changes Comments: HR-88 CT Ordered: Yes - head-no acute intracranial abnormalities Departure - Departure Clinical Impression: Syncopal episodes Qualifiers: Syncope type: unspecified Qualified Code(s): R55 - Syncope and collapse Contusion of head Qualifiers: Encounter type: initial encounter Contusion of head detail: other part of head Qualified Code(s): S00.83XA - Contusion of other part of head, initial encounter Headache Qualifiers: Headache type: post-traumatic Headache chronicity pattern: acute headache Intractability: not intractable Qualified Code(s): G44.319 - Acute post- traumatic headache, not intractable Time of Disposition: 20:07 Disposition: Discharge to Home or Self Care Condition: Fair Departure Forms: ED Discharge - Pt. Copy, Patient Portal Self Enrollment Instructions: Syncope (Fainting) (DC), Syncope (Fainting) Referrals: Bernie Seaman NP [Primary Care Provider] - 1-2 Weeks Home Medications: Ambulatory Orders NK [NK] 03/02/18 Additional Instructions: Return to emergency room as needed;May take Aleve(over the counter) 1-2 tablets am/pm as needed for pain and headache;follow up with primary Md in am for further evaluation by Neurologist.
[2018-05-25] MEDS ORDERED: LACTATED RINGERS 1,000 ML IVS ONE (18:01)
[2018-05-25 18:23] VITALS: O2SAT 100
--- NOTE | 2018-05-25 19:42 | CT ---
EXAM: Head CLINICAL INDICATION: Syncope COMPARISON: There is no previous study for comparison. TECHNIQUE: The CT scan was done using contiguous axial 2.5 mm sections through the brain. This exam was performed according to our departmental dose-optimization program, which includes automated exposure control, adjustment of the mA and/or kV according to patient size and/or use of iterative reconstruction technique. FINDINGS: There is no midline shift, mass effect, or extraaxial fluid collection. There is no evidence of acute intracranial hemorrhage, mass lesion, or cerebral edema. The ventricles and cortical sulci are normal for the patient's age. Bone window images reveal no evidence of a skull fracture. IMPRESSION: No evidence of an acute intracranial process. Electronically signed by: Zain Hester MD 05/25/2018 7:41 PM CDT
[2018-05-25] MEDS ORDERED: KETOROLAC TROMETHAMINE INJ 30 MG/ML VIAL IV ONE (19:59)
[2018-05-25 20:23] VITALS: BP 114/79; TEMP 97.6
== END 2018-05-25 20:23 | disposition home or self-care (01) ==
LOC: ER 17:16
DX: R55 Syncope and collapse (principal); S00.83XA Contusion of other part of head, initial encounter; R51 Headache; J45.909 Unspecified asthma, uncomplicated; Z87.891 Personal history of nicotine dependence; Z88.1 Allergy status to other antibiotic agents; Z88.2 Allergy status to sulfonamides; W18.39XA Other fall on same level, initial encounter; Y92.008 Other place in unspecified non-institutional (private) residence as the place of occurrence of the external cause
CPT/HCPCS: 36415; 70450; 80053; 80307; 81001; 84703; 85025; 93005; J1885; J7120

== ENCOUNTER 2018-08-26 16:38 | Emergency (ER) | payer SELFPAY ==
[2018-08-26] MEDS ORDERED: KETOROLAC TROMETHAMINE INJ 60 MG/2 ML VIAL IM ONE (16:56)
[2018-08-26] MEDS ORDERED: ONDANSETRON ODT 8 MG TAB SL ONE (16:56)
--- NOTE | 2018-08-26 16:59 | ED.PDOC ---
History of Present Illness - General Chief Complaint: Abdominal Pain Stated Complaint: RLQ pain Time Seen by Provider: 08/26/18 16:47 Information Source: patient Exam Limitations: no limitations - History of Present Illness Initial Comments: patient comes in today for right lower quadrant abdominal pain. Patient stated started yesterday and was sharp and located in the area without radiation. She's had some nausea but no emesis, diarrhea, or constipation. She's had no vaginal discharge or bleeding. She does not have regular menses secondary to IUD placement but does not feel like she could be . Patient denies any dysuria, hematuria, malodorous urine, or urinary hesitancy. Patient states in the past she has had ovarian cysts and this does feel very similar to those. Patient states yesterday she was able to get in the warm shower and it helped some with the pain but today it seemed to be worse so she thought she should come in. She has no fever or chills. She denies any cough or cold symptoms. Patient does have chronic bronchitis and bipolar disorder. Abdominal Pain Onset Location: RLQ Pain Radiation: no radiation Quality: moderate, sharpness Timing/Duration: 24 hours Improving Factors: other - heat from shower Worsening Factors: nothing Associated Symptoms: nausea/vomiting Review of Systems - Review of Systems Constitutional: States: no symptoms reported. Denies: chills, fever, weakness EENTM: States: no symptoms reported. Denies: eye pain, ear pain, nose congestion, throat pain Respiratory: States: no symptoms reported. Denies: cough, short of breath, wheezing Cardiology: States: no symptoms reported. Denies: chest pain, palpitations Gastrointestinal/Abdominal: States: see HPI, abdominal pain, nausea. Denies: constipation, diarrhea, vomiting Genitourinary: States: no symptoms reported. Denies: discharge, dysuria, frequency, hematuria Skin: States: no symptoms reported Past Medical History (General) - Patient Medical History Hx Seizures: No Hx Stroke: No Hx Dementia: No Hx Asthma: Yes Hx of COPD: No Hx Cardiac Disorders: No Hx Congestive Heart Failure: No Hx Pacemaker: No Hx Hypertension: No Hx Thyroid Disease: No Hx Diabetes: No Hx Gastroesophageal Reflux: No Hx Renal Disease: No Hx Cancer: No Hx of HIV: No Hx Hepatitis C: No Hx MRSA: No - Vaccination History Hx Tetanus, Diphtheria Vaccination: Yes Hx Influenza Vaccination: Yes - 2017 Hx Pneumococcal Vaccination: No - Social History Hx Tobacco Use: Yes Hx Chewing Tobacco Use: No Hx Alcohol Use: No Hx Substance Use: No Hx Substance Use Treatment: No Hx Depression: No Hx Physical Abuse: No Hx Emotional Abuse: No Hx Suspected Abuse: No - Female History Patient : No - IUD Family Medical History - Family History Mother Living Status: Still Living Hx Family Hypertension: Yes Hx Family Diabetes: Yes Physical Exam - Physical Exam General Appearance: Alert, No apparent distress Eyes, Ears, Nose, Throat Exam: PERRL/EOMI, normal ENT inspection, TMs normal Neck: non-tender, full range of motion, supple Respiratory: chest non-tender, lungs clear, normal breath sounds Cardiovascular/Chest: normal peripheral pulses, regular rate, rhythm, no murmur Peripheral Pulses: No deficit Gastrointestinal/Abdominal: normal bowel sounds, soft, tenderness - TTP RLQ with no rebound and no guarding Progress - Progress Progress: 08/26/18 18:08 pt is feeling a little better. She understands that the appendix was not completely visualized but clinical picture is more consistent with ruptured ovarian cyst. patient was given toradol here and should not take IBU for at least 8 hours. Tylenol for pain and then IBU for the next few days. Return to ER for increased pain, fever >100.5, intractable emesis. - Results/Orders Results/Orders: 08/26/18 17:38 URINALYSIS Stat Laboratory Results WBC 4.5 K/mm3 (4.8-10.8) L 08/26/18 17:06 RBC 4.06 M/mm3 (4.20-5.40) L 08/26/18 17:06 Hgb 12.8 gm/dL (12.0-16.0) 08/26/18 17:06 Hct 37.8 % (36.0-47.0) 08/26/18 17:06 MCV 93.1 fl (81.0-99.0) 08/26/18 17:06 MCH 31.5 pg (27.0-31.0) H 08/26/18 17:06 MCHC 33.8 g/dL (33.0-37.0) 08/26/18 17:06 RDW 12.6 % (11.5-14.5) 08/26/18 17:06 Plt Count 205 K/mm3 (130-400) 08/26/18 17:06 MPV 7.6 fl (7.40-10.4) 08/26/18 17:06 Absolute Neuts (auto) 2.60 K/uL (1.8-6.8) 08/26/18 17:06 Absolute Lymphs (auto) 1.40 K/uL (1.0-3.4) 08/26/18 17:06 Absolute Monos (auto) 0.40 K/uL (0.2-0.8) 08/26/18 17:06 Absolute Eos (auto) 0.10 K/uL (0.0-0.4) 08/26/18 17:06 Absolute Basos (auto) 0.00 K/uL (0.0-0.1) 08/26/18 17:06 Neutrophils % 57.4 % (42.0-78.0) 08/26/18 17:06 Lymphocytes % 31.3 % (20.0-50.0) 08/26/18 17:06 Monocytes % 9.4 % (2.0-9.0) H 08/26/18 17:06 Eosinophils % 1.2 % (1.0-5.0) 08/26/18 17:06 Basophils % 0.7 % (0.0-2.0) 08/26/18 17:06 Sodium 135 mmol/L (135-145) 08/26/18 17:06 Potassium 3.7 mmol/L (3.6-5.0) 08/26/18 17:06 Chloride 103 mmol/L (101-111) 08/26/18 17:06 Carbon Dioxide 28 mmol/L (21-31) 08/26/18 17:06 Anion Gap 7.7 (12-18) L 08/26/18 17:06 BUN 10 mg/dL (7-18) 08/26/18 17:06 Creatinine 0.68 mg/dL (0.6-1.3) 08/26/18 17:06 BUN/Creatinine Ratio 14.7 (10-20) 08/26/18 17:06 Random Glucose 90 mg/dL (70-105) 08/26/18 17:06 Serum Osmolality 268.7 mOsm/L (275-295) L 08/26/18 17:06 Calcium 9.1 mg/dL (8.4-10.2) 08/26/18 17:06 Total Bilirubin 0.4 mg/dL (0.2-1.0) 08/26/18 17:06 AST 15 IU/L (10-42) 08/26/18 17:06 ALT 10 IU/L (10-60) 08/26/18 17:06 Alkaline Phosphatase 41 IU/L (42-121) L 08/26/18 17:06 Serum Total Protein 6.9 gm/dL (6.4-8.2) 08/26/18 17:06 Albumin 4.1 g/dl (3.2-5.5) 08/26/18 17:06 Globulin 2.8 gm/dL (2.3-3.5) 08/26/18 17:06 Albumin/Globulin Ratio 1.5 (1.1-1.9) 08/26/18 17:06 Serum HCG, Qual Negative 08/26/18 17:06 Patient Name: LIGIA LU Gender: Female Date of : 1985 Referring Physician: LOGAN DELGADO Organization: [facility] Accession Number: [id number] Requested Date: August 26, 2018 16:56 Report Status: Final Requested Procedure: 1 Procedure Description: Abdoment/Pelvis w/o Contrast Modality: CT Findings Reporting MD: Rosalba Main MD: Not available Dictation Time: Honing Machine Try Out Setter: Not available Field Staff Date: EXAM DESCRIPTION: A w/o Contrast CLINICAL HISTORY: 33 years Female RLQ abdominal pain COMPARISON: None TECHNIQUE: Contiguous axial images were obtained through the abdomen and pelvis without the administration of intravenous contrast or oral contrast. Coronal and sagittal reconstructions are also obtained and reviewed. This exam was performed according to our departmental dose-optimization program, which includes automated exposure control, adjustment of the mA and/or kV according to patient size and/or use of iterative reconstruction technique. FINDINGS: LUNG BASES: HEART: Unremarkable. There is no cardiomegaly. LUNGS: The lungs are clear PLEURAL SPACES: There is no evidence of pleural fluid or pneumothorax . ABDOMEN: LIVER: Normal in size and configuration. There are no significant focal defects. There is no evidence of biliary ductal dilatation. GALLBLADDER AND BILE DUCTS: Unremarkable. There is no evidence of calculi or pericholecystic inflammatory changes. There is no biliary ductal dilatation. PANCREAS: Unremarkable. No ductal dilatation, inflammatory changes or mass. SPLEEN: Unremarkable. No splenomegaly or focal defects. ADRENALS: Unremarkable. No mass or calcification. KIDNEYS AND URETERS: There are no acute findings. There is no evidence of solid renal mass. There are no nonobstructive intrarenal calculi. There is no evidence of hydronephrosis. DISTAL ESOPHAGUS, STOMACH AND BOWEL: The distal esophagus is unremarkable. The stomach is unremarkable. The small bowel is unremarkable. The colon is unremarkable. The rectum is unremarkable. No evidence of intestinal obstruction or inflammatory changes. [facility] [employer]. [address] [place] [address], [address] [place] [address] T [phone] F [phone] [email or web address] Report exported on Aug 26, 2018 17:40:38 [id number] - Page 2 of 2 PELVIS: APPENDIX: The appendix is not discretely visualized; however, there is no definite inflammation in the right lower quadrant to suggest acute appendicitis. Short-term repeat imaging with contrast is suggested if there is continued clinical concern for appendicitis. BLADDER: Unremarkable, allowing for the degree of distention. There is no evidence of cystolithiasis or bladder mass. REPRODUCTIVE: The retroflexed and levorotated uterus and adnexa show no acute findings. An IUD is present and in satisfactory position. ABDOMEN and PELVIS: INTRAPERITONEAL SPACE: Unremarkable. No free air or nonphysiologic free fluid. No significant focal fluid collection. BONES AND JOINTS: There are no discernible acute fractures or areas of osseous destruction or blastic change. SOFT TISSUES: A metallic foreign body is noted in the umbilicus. VASCULATURE: Unremarkable. No abdominal aortic aneurysm. LYMPH NODES: Unremarkable. There is no evidence of mesenteric, retroperitoneal, pelvic or inguinal adenopathy. IMPRESSION: The appendix is not discretely visualized; however, there is no definite inflammation in the right lower quadrant to suggest acute appendicitis. Short-term repeat imaging with contrast is suggested if there is continued clinical concern for appendicitis. Departure - Departure Clinical Impression: Ovarian cyst Qualifiers: Laterality: right Qualified Code(s): N83.201 - Unspecified ovarian cyst, right side Disposition: Discharge to Home or Self Care Condition: Good Departure Forms: ED Discharge - Pt. Copy, Patient Portal Self Enrollment Instructions: DI for Abdominal Pain-Adult Diet: regular diet Referrals: Bernie Seaman NP [Primary Care Provider] - 1-2 Weeks Home Medications: Ambulatory Orders Lamotrigine [Lamictal] 200 mg PO BEDTIME 08/26/18 Lorazepam [Ativan] 1 mg PO BID 08/26/18 Zolpidem Tartrate [Ambien] 10 mg PO BEDTIME 08/26/18 Additional Instructions: should not take IBU for at least 8 hours. Tylenol for pain and then IBU for the next few days. Return to ER for increased pain, fever >100.5, intractable emesis.
[2018-08-26 17:06] VITALS: TEMP 97.2
--- NOTE | 2018-08-26 17:38 | CT ---
EXAM DESCRIPTION: A w/o Contrast CLINICAL HISTORY: 33 years Female RLQ abdominal pain COMPARISON: None TECHNIQUE: Contiguous axial images were obtained through the abdomen and pelvis without the administration of intravenous contrast or oral contrast. Coronal and sagittal reconstructions are also obtained and reviewed. This exam was performed according to our departmental dose-optimization program, which includes automated exposure control, adjustment of the mA and/or kV according to patient size and/or use of iterative reconstruction technique. FINDINGS: LUNG BASES: HEART: Unremarkable. There is no cardiomegaly. LUNGS: The lungs are clear PLEURAL SPACES: There is no evidence of pleural fluid or pneumothorax . ABDOMEN: LIVER: Normal in size and configuration. There are no significant focal defects. There is no evidence of biliary ductal dilatation. GALLBLADDER AND BILE DUCTS: Unremarkable. There is no evidence of calculi or pericholecystic inflammatory changes. There is no biliary ductal dilatation. PANCREAS: Unremarkable. No ductal dilatation, inflammatory changes or mass. SPLEEN: Unremarkable. No splenomegaly or focal defects. ADRENALS: Unremarkable. No mass or calcification. KIDNEYS AND URETERS: There are no acute findings. There is no evidence of solid renal mass. There are no nonobstructive intrarenal calculi. There is no evidence of hydronephrosis. DISTAL ESOPHAGUS, STOMACH AND BOWEL: The distal esophagus is unremarkable. The stomach is unremarkable. The small bowel is unremarkable. The colon is unremarkable. The rectum is unremarkable. No evidence of intestinal obstruction or inflammatory changes. PELVIS: APPENDIX: The appendix is not discretely visualized; however, there is no definite inflammation in the right lower quadrant to suggest acute appendicitis. Short-term repeat imaging with contrast is suggested if there is continued clinical concern for appendicitis. BLADDER: Unremarkable, allowing for the degree of distention. There is no evidence of cystolithiasis or bladder mass. REPRODUCTIVE: The retroflexed and levorotated uterus and adnexa show no acute findings. An IUD is present and in satisfactory position. ABDOMEN and PELVIS: INTRAPERITONEAL SPACE: Unremarkable. No free air or nonphysiologic free fluid. No significant focal fluid collection. BONES AND JOINTS: There are no discernible acute fractures or areas of osseous destruction or blastic change. SOFT TISSUES: A metallic foreign body is noted in the umbilicus. VASCULATURE: Unremarkable. No abdominal aortic aneurysm. LYMPH NODES: Unremarkable. There is no evidence of mesenteric, retroperitoneal, pelvic or inguinal adenopathy. IMPRESSION: The appendix is not discretely visualized; however, there is no definite inflammation in the right lower quadrant to suggest acute appendicitis. Short-term repeat imaging with contrast is suggested if there is continued clinical concern for appendicitis. Remainder of findings as described above. Electronically signed by: Rosalba Main MD 08/26/2018 5:37 PM [facility] [employer]
[2018-08-26 18:20] VITALS: BP 109/61; O2SAT 100
== END 2018-08-26 18:19 | disposition home or self-care (01) ==
LOC: ER 16:38
DX: N83.201 Unspecified ovarian cyst, right side (principal); R11.2 Nausea with vomiting, unspecified; J45.909 Unspecified asthma, uncomplicated; F31.9 Bipolar disorder, unspecified; Z97.5 Presence of (intrauterine) contraceptive device; Z87.891 Personal history of nicotine dependence; Z87.42 Personal history of other diseases of the female genital tract
CPT/HCPCS: 36415; 74176; 80053; 81001; 84703; 85025; J1885

== ENCOUNTER 2018-09-12 13:54 | Emergency (ER) | payer SELFPAY ==
--- NOTE | 2018-09-12 14:13 | ED.PDOC ---
History of Present Illness - General Stated Complaint: SORE THROAT Time Seen by Provider: 09/12/18 14:02 Source: patient Exam Limitations: no limitations - History of Present Illness Initial Comments: ONSET TWO DAYS AGO, SUBJECTIVE FEVER. Timing/Duration: gradual EENT Location: throat Prearrival Treatment: no prearrival treatment Improving Factors: nothing Worsening Factors: nothing Associated Symptoms: fever, malaise Allergies/Adverse Reactions: Allergies Sulfa Drugs Allergy (Intermediate, Verified 05/25/18 17:33) Levofloxacin [From Levaquin] Allergy (Verified 05/25/18 17:33) Home Medications: Ambulatory Orders Lamotrigine [Lamictal] 200 mg PO BEDTIME 08/26/18 Lorazepam [Ativan] 1 mg PO BID 08/26/18 Zolpidem Tartrate [Ambien] 10 mg PO BEDTIME 08/26/18 Azithromycin [Zithromax Z-Steven] 250 mg PO DAILY #7 tab 09/12/18 Review of Systems - Review of Systems Constitutional: States: fever, malaise EENTM: States: throat pain Respiratory: States: no symptoms reported Cardiology: States: no symptoms reported Gastrointestinal/Abdominal: States: no symptoms reported Genitourinary: States: no symptoms reported Musculoskeletal: States: no symptoms reported Skin: States: no symptoms reported Neurological: States: no symptoms reported Past Medical History (General) - Patient Medical History Hx Seizures: No Hx Stroke: No Hx Dementia: No Hx Asthma: Yes Hx of COPD: No Hx Cardiac Disorders: No Hx Congestive Heart Failure: No Hx Pacemaker: No Hx Hypertension: No Hx Thyroid Disease: No Hx Diabetes: No Hx Gastroesophageal Reflux: No Hx Renal Disease: No Hx Cancer: No Hx of HIV: No Hx Hepatitis C: No Hx MRSA: No - Vaccination History Hx Tetanus, Diphtheria Vaccination: Yes Hx Influenza Vaccination: Yes - 2017 Hx Pneumococcal Vaccination: No - Social History Hx Tobacco Use: Yes Hx Chewing Tobacco Use: No Hx Alcohol Use: No Hx Substance Use: No Hx Substance Use Treatment: No Hx Depression: No Hx Physical Abuse: No Hx Emotional Abuse: No Hx Suspected Abuse: No - Female History Patient : No - IUD Family Medical History - Family History Mother Living Status: Still Living Hx Family Hypertension: Yes Hx Family Diabetes: Yes Physical Exam - Physical Exam General Appearance: Alert, Well Developed, Well Hydrated Eye Exam: bilateral normal Ear Exam: bilateral ear: auricle normal, TM normal Nasal Exam: normal inspection Throat Exam: pharynx swelling, pharynx tenderness Neck: non-tender, supple Cardiovascular/Respiratory: regular rate, rhythm, no M/R/G, normal peripheral pulses, no JVD Neurologic: no motor/sensory deficits, oriented x 3 Skin Exam: normal color Departure - Departure Clinical Impression: Pharyngitis Qualifiers: Pharyngitis/tonsillitis etiology: other specified organisms Qualified Code(s): J02.8 - Acute pharyngitis due to other specified organisms Time of Disposition: 14:14 Disposition: Discharge to Home or Self Care Condition: Good Instructions: Sore Throat in Adults Referrals: Bernie Seaman NP [Primary Care Provider] - 1-2 Weeks Prescriptions: Azithromycin [Zithromax Z-Steven] 250 mg PO DAILY #7 tab Home Medications: Ambulatory Orders Lamotrigine [Lamictal] 200 mg PO BEDTIME 08/26/18 Lorazepam [Ativan] 1 mg PO BID 08/26/18 Zolpidem Tartrate [Ambien] 10 mg PO BEDTIME 08/26/18 Azithromycin [Zithromax Z-Steven] 250 mg PO DAILY #7 tab 09/12/18
[2018-09-12 14:15] VITALS: O2SAT 99
[2018-09-12 14:24] VITALS: BP 134/67; TEMP 97.2
== END 2018-09-12 14:22 | disposition home or self-care (01) ==
LOC: ER 13:54
DX: J02.8 Acute pharyngitis due to other specified organisms (principal); J45.909 Unspecified asthma, uncomplicated; Z87.891 Personal history of nicotine dependence; Z88.2 Allergy status to sulfonamides; Z88.1 Allergy status to other antibiotic agents

== ENCOUNTER 2018-10-15 11:13 | Emergency (ER) | payer SELFPAY ==
[2018-10-15 11:28] VITALS: BP 112/78; TEMP 98.9; O2SAT 99
[2018-10-15] MEDS ORDERED: predniSONE 20 MG TAB PO ONE (11:30)
[2018-10-15] MEDS ORDERED: PENICILLIN BENZATHINE 1.2 MU 1.2 MU/2 ML SYG IM ONE (11:30)
--- NOTE | 2018-10-15 11:33 | ED.PDOC ---
History of Present Illness - General Time Seen by Provider: 10/15/18 11:22 Source: patient Exam Limitations: no limitations - History of Present Illness Initial Comments: the patient is a 33-year-old female presenting to the emergency room secondary to a rash present for the last 2 days. The rash is not itchy. It is somewhat sandpaperlike and diffuse. She did have a sore throat a couple of weeks ago. No fevers. No nausea or vomiting. No pustules. No purpura. No oral lesions. This does not appear to be contacted as it is very diffuse. No runny nose. Timing/Duration: 24 hours Severity: moderate Improving Factors: nothing Worsening Factors: nothing Associated Symptoms: denies symptoms Allergies/Adverse Reactions: Allergies Sulfa Drugs Allergy (Intermediate, Verified 10/15/18 11:29) Levofloxacin [From Levaquin] Allergy (Verified 10/15/18 11:29) Home Medications: Ambulatory Orders Lamotrigine [Lamictal] 200 mg PO BEDTIME 08/26/18 Lorazepam [Ativan] 1 mg PO BID 08/26/18 Zolpidem Tartrate [Ambien] 10 mg PO BEDTIME 08/26/18 Review of Systems - Review of Systems Constitutional: States: malaise - mild EENTM: States: no symptoms reported Respiratory: States: no symptoms reported Cardiology: States: no symptoms reported Gastrointestinal/Abdominal: States: no symptoms reported Genitourinary: States: no symptoms reported Musculoskeletal: States: no symptoms reported Skin: States: see HPI Neurological: States: no symptoms reported All other Systems: No Change from Baseline Past Medical History (General) - Patient Medical History Hx Seizures: No Hx Stroke: No Hx Dementia: No Hx Asthma: Yes Hx of COPD: No Hx Cardiac Disorders: No Hx Congestive Heart Failure: No Hx Pacemaker: No Hx Hypertension: No Hx Thyroid Disease: No Hx Diabetes: No Hx Gastroesophageal Reflux: No Hx Renal Disease: No Hx Cancer: No Hx of HIV: No Hx Hepatitis C: No Hx MRSA: No - Vaccination History Hx Tetanus, Diphtheria Vaccination: Yes Hx Influenza Vaccination: Yes - 2017 Hx Pneumococcal Vaccination: No - Social History Hx Tobacco Use: Yes Hx Chewing Tobacco Use: No Hx Alcohol Use: No Hx Substance Use: No Hx Substance Use Treatment: No Hx Depression: No Hx Physical Abuse: No Hx Emotional Abuse: No Hx Suspected Abuse: No - Female History Patient is a Female of Child Bearing Age (10 -59 yrs old): Yes Patient : No - IUD Family Medical History - Family History Mother Living Status: Still Living Hx Family Hypertension: Yes Hx Family Diabetes: Yes Physical Exam - Physical Exam General Appearance: Alert, Comfortable, No apparent distress Eye Exam: bilateral normal Ears, Nose, Throat: hearing grossly normal, normal ENT inspection, normal pharynx Neck: full range of motion, supple Respiratory: lungs clear, normal breath sounds, no respiratory distress, no accessory muscle use Cardiovascular/Chest: normal peripheral pulses, regular rate, rhythm - borderline tachycardia, no edema Peripheral Pulses: radial,right: 2+, radial,left: 2+, dorsalis pedis,right: 2+, dorsalis pedis,left: 2+ Gastrointestinal/Abdominal: non tender, soft Rectal Exam: deferred Back Exam: no CVA tenderness, no vertebral tenderness Extremity: non-tender, normal inspection, no pedal edema, normal capillary refill Neurologic: 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 The source of this is not entirely certain. As the patient had a sore throat a few weeks ago we will go ahead and treat for the possibility of streptococcal associated rash with B[place] in L-[place]. She is also receiving one dose of prednisone. It is possible this may be a viral exanthem. The patient needs to keep routine follow-up with her primary care doctor. Obviously if the problem is worsening or changing significantly then she may need to be reevaluated. No evidence of any obvious infection at this time. ER warnings were given. Departure - Departure Clinical Impression: Papular rash, generalized Disposition: Discharge to Home or Self Care Condition: Fair Diet: regular diet Activity: increase activity as tolerated Referrals: Irene Cheema NP [Primary Care Provider] - 1-2 Weeks Home Medications: Ambulatory Orders Lamotrigine [Lamictal] 200 mg PO BEDTIME 08/26/18 Lorazepam [Ativan] 1 mg PO BID 08/26/18 Zolpidem Tartrate [Ambien] 10 mg PO BEDTIME 08/26/18 Additional Instructions: the patient is a 33-year-old female presenting to emergency room with a diffuse mildly papular rash that is nonpruritic. The source of this is not entirely certain. As the patient had a sore throat a few weeks ago we will go ahead and treat for the possibility of streptococcal associated rash with Bicillin L-A. She is also receiving one dose of prednisone. It is possible this may be a viral exanthem. The patient needs to keep routine follow-up with her primary care doctor. Obviously if the problem is worsening or changing significantly then she may need to be reevaluated. No evidence of any obvious infection at this time. ER warnings were given.
== END 2018-10-15 12:07 | disposition home or self-care (01) ==
LOC: ER 11:13
DX: R21 Rash and other nonspecific skin eruption (principal); J45.909 Unspecified asthma, uncomplicated; Z88.2 Allergy status to sulfonamides; Z88.1 Allergy status to other antibiotic agents
CPT/HCPCS: J0561; J7512

== ENCOUNTER 2019-03-12 15:07 | Emergency (ER) | payer SELFPAY ==
--- NOTE | 2019-03-12 15:59 | ED.PDOC ---
History of Present Illness - General Chief Complaint: Back Pain or Injury Stated Complaint: low back pain Time Seen by Provider: 03/12/19 15:41 Source: patient Exam Limitations: no limitations - History of Present Illness Initial Comments: Carole Gonsalez 33 y/o female stated twisted her back yesterday as she was opening the door at work- [employer] yesterday since incident had been having steady sharp pains lower back aggravated by prolong standing and bending over.Had previous work related injury when she was 14 y/o.Denies numbness,tingling sensation lower extremity or bowel/bladder dysfunction. Timing/Duration: other - 36 Quality/Severity: sharpness Back Pain Location: lumbar spine Method of Injury/Prior Injury: twisted Worsening Factors: movement Associated Symptoms: lower back pain Allergies/Adverse Reactions: Allergies Sulfa Drugs Allergy (Intermediate, Verified 10/15/18 11:29) Levofloxacin [From Levaquin] Allergy (Verified 10/15/18 11:29) Home Medications: Ambulatory Orders Lamotrigine [Lamictal] 200 mg PO BEDTIME 08/26/18 Lorazepam [Ativan] 1 mg PO BID 08/26/18 Zolpidem Tartrate [Ambien] 10 mg PO BEDTIME 08/26/18 Baclofen 20 mg PO BID PRN #30 tab 03/12/19 Buspar 03/12/19 Diclofenac Sodium [Diclofenac Sodium Dr] 75 mg PO BID #30 tab 03/12/19 Review of Systems - Review of Systems Musculoskeletal: States: back pain Past Medical History (General) - Patient Medical History Hx Seizures: No Hx Stroke: No Hx Dementia: No Hx Asthma: Yes Hx of COPD: No Hx Cardiac Disorders: No Hx Congestive Heart Failure: No Hx Pacemaker: No Hx Hypertension: No Hx Thyroid Disease: No Hx Diabetes: No Hx Gastroesophageal Reflux: No Hx Renal Disease: No Hx Cancer: No Hx of HIV: No Hx Hepatitis C: No Hx MRSA: No Surgical History: other - iud - Vaccination History Hx Tetanus, Diphtheria Vaccination: Yes Hx Influenza Vaccination: Yes Hx Pneumococcal Vaccination: No - Social History Hx Tobacco Use: No Hx Chewing Tobacco Use: No Hx Alcohol Use: No Hx Substance Use: No Hx Substance Use Treatment: No Hx Depression: Yes Hx Physical Abuse: No Hx Emotional Abuse: No Hx Suspected Abuse: No - Female History Patient is a Female of Child Bearing Age (10 -59 yrs old): Yes - has an IUD Patient : No - IUD Family Medical History - Family History Mother Living Status: Still Living Hx Family Hypertension: Yes Hx Family Diabetes: Yes Physical Exam - Physical Exam General Appearance: Alert, Comfortable Eyes, Ears, Nose, Throat Exam: normal ENT inspection Neck Exam: non-tender, normal alignment, normal inspection Cardiovascular/Respiratory: regular rate, rhythm, no M/R/G, normal peripheral pulses, normal breath sounds Peripheral Pulses: radial,right: 2+, radial,left: 2+ Gastrointestinal/Abdominal: soft, no organomegaly Back Exam: no CVA tenderness, no vertebral tenderness, muscle spasm - lower back Extremity Exam: non-tender, no pedal edema Neurologic: alert, oriented x 3 Skin Exam: normal color, warm/dry Progress - Progress Progress: 03/12/19 16:02 Vital Signs 03/12/19 15:20 Temperature 98.2 F Pulse Rate [ 73 Left Brachial] Respiratory 20 Rate Blood Pressure 124/80 [Left Arm] O2 Sat by Pulse 98 Oximetry 03/12/19 16:57 Discuss x ray result with patient - EKG/XRAY/CT XRAY: lumbar spine no acute abnormality Departure - Departure Clinical Impression: Low back strain Qualifiers: Encounter type: initial encounter Qualified Code(s): S39.012A - Strain of muscle, fascia and tendon of lower back, initial encounter Time of Disposition: 16:52 Disposition: Discharge to Home or Self Care Condition: Fair Departure Forms: ED Discharge - Pt. Copy, Patient Portal Self Enrollment Instructions: DI for Low Back Pain, DI for Back Strain or Sprain, DI for Back Spasm Referrals: Irene Cheema NP [Primary Care Provider] - 1-2 Weeks Prescriptions: Baclofen 20 mg PO BID PRN #30 tab PRN Reason: Muscle Spasms Diclofenac Sodium [Diclofenac Sodium Dr] 75 mg PO BID #30 tab Home Medications: Ambulatory Orders Lamotrigine [Lamictal] 200 mg PO BEDTIME 08/26/18 Lorazepam [Ativan] 1 mg PO BID 08/26/18 Zolpidem Tartrate [Ambien] 10 mg PO BEDTIME 08/26/18 Baclofen 20 mg PO BID PRN #30 tab 03/12/19 Buspar 03/12/19 Diclofenac Sodium [Diclofenac Sodium Dr] 75 mg PO BID #30 tab 03/12/19 Additional Instructions: Follow up with primary Md for recheck 15 March 2019
--- NOTE | 2019-03-12 16:33 | RAD ---
EXAM DESCRIPTION: Lumbar Spine 5 Views CLINICAL HISTORY: 33 years Female, pain lower back-twisted COMPARISON: None available. FINDINGS: The vertebral body heights are well-maintained with no acute compression deformity. The intervertebral disc spaces are well preserved. No evidence of spondylolysis or spondylolisthesis. The visualized prevertebral and paravertebral soft tissues appear grossly unremarkable. IMPRESSION: No acute radiographic abnormality is noted within the lumbar spine. Electronically signed by: Emma Merino MD 03/12/2019 4:30 PM CDT
[2019-03-12] MEDS ORDERED: PROMETHAZINE HCL INJ 25 MG/ML VIAL IM ONE (16:49)
[2019-03-12] MEDS ORDERED: KETOROLAC TROMETHAMINE INJ 30 MG/ML VIAL IM ONE (16:49)
[2019-03-12] MEDS ORDERED: METHOCARBAMOL 750 MG TAB PO ONE (16:50)
[2019-03-12 17:21] VITALS: BP 125/78; TEMP 97.8; O2SAT 99
== END 2019-03-12 17:19 | disposition home or self-care (01) ==
LOC: ER 15:07
DX: S39.012A Strain of muscle, fascia and tendon of lower back, initial encounter (principal); F32.9 Major depressive disorder, single episode, unspecified; J45.909 Unspecified asthma, uncomplicated; Z79.899 Other long term (current) drug therapy; Z88.2 Allergy status to sulfonamides; Z88.1 Allergy status to other antibiotic agents; X50.9XXA Other and unspecified overexertion or strenuous movements or postures, initial encounter; Y99.0 Civilian activity done for income or pay; Y92.69 Other specified industrial and construction area as the place of occurrence of the external cause
CPT/HCPCS: 72114; J1885; J2550

== ENCOUNTER 2019-04-07 21:27 | Emergency (ER) | payer SELFPAY ==
[2019-04-07 21:39] VITALS: TEMP 99.1
--- NOTE | 2019-04-07 21:52 | ED.PDOC ---
History of Present Illness - General Chief Complaint: Abdominal Pain Stated Complaint: RLQ pain since yesterday, sore throat Time Seen by Provider: 04/07/19 21:35 Source: patient Exam Limitations: no limitations - History of Present Illness Initial Comments: Patient presents with RLQ pain for one day. She says it is sharp and radiates to her right side and back. Constant but intermittent in intensity. No exacerbating nor alleviating factors. She has had a sore throat since yesterday with odynophagia. She reports having a "low grade" fever this morning. She has a history of an ovarian cyst on the right and says that it feels like when she had the cyst. She said that it eventually ruptured. S/P C/S x 3. Currently uses on IUD. Denies other surgeries. Timing/Duration: 24 hours Severity: moderate Improving Factors: nothing Worsening Factors: nothing Associated Symptoms: other - as in HPI Allergies/Adverse Reactions: Allergies Sulfa Drugs Allergy (Intermediate, Verified 04/07/19 21:39) Levofloxacin [From Levaquin] Allergy (Verified 04/07/19 21:39) Home Medications: Ambulatory Orders Zolpidem Tartrate [Ambien] 10 mg PO BEDTIME 08/26/18 Ketorolac Tromethamine [Toradol Tabs] 10 mg PO Q6HRS PRN #10 tab 04/07/19 Oxcarbazepine [Trileptal] 600 mg PO DAILY 04/07/19 Review of Systems - Review of Systems Constitutional: States: see HPI EENTM: States: see HPI Respiratory: States: no symptoms reported Cardiology: States: no symptoms reported Gastrointestinal/Abdominal: States: see HPI Musculoskeletal: States: no symptoms reported Skin: States: no symptoms reported Neurological: States: no symptoms reported Endocrine: States: no symptoms reported Hematologic/Lymphatic: States: no symptoms reported Past Medical History (General) - Patient Medical History Hx Seizures: No Hx Stroke: No Hx Dementia: No Hx Asthma: Yes Hx of COPD: No Hx Cardiac Disorders: No Hx Congestive Heart Failure: No Hx Pacemaker: No Hx Hypertension: No Hx Thyroid Disease: No Hx Diabetes: No Hx Gastroesophageal Reflux: No Hx Renal Disease: No Hx Cancer: No Hx of HIV: No Hx Hepatitis C: No Hx MRSA: No Surgical History: other - Vaccination History Hx Tetanus, Diphtheria Vaccination: Yes Hx Influenza Vaccination: Yes Hx Pneumococcal Vaccination: No - Social History Hx Tobacco Use: No Hx Chewing Tobacco Use: No Hx Alcohol Use: No Hx Substance Use: No Hx Substance Use Treatment: No Hx Depression: Yes Hx Physical Abuse: No Hx Emotional Abuse: No Hx Suspected Abuse: No - Female History Patient : No - IUD Family Medical History - Family History Mother Living Status: Still Living Hx Family Hypertension: Yes Hx Family Diabetes: Yes Physical Exam - Physical Exam General Appearance: Alert Respiratory: lungs clear, normal breath sounds Cardiovascular/Chest: normal peripheral pulses, regular rate, rhythm Gastrointestinal/Abdominal: normal bowel sounds, tenderness - Mildly TTP at RLQ. No guarding nor rebound tenders. Negative psoas and obturator signs. Negative Rovsing sign. Back Exam: normal inspection, no CVA tenderness Extremity: normal range of motion, non-tender, normal inspection Neurologic: no motor/sensory deficits, alert, normal mood/affect, oriented x 3 Skin Exam: normal color Lymphatic: no adenopathy Progress - Progress Progress: 04/07/19 22:36 Laboratory Tests 04/07/19 04/07/19 04/07/19 09:50 09:50 09:55 WBC 4.2 L RBC 3.68 L Hgb 11.6 L Hct 33.9 L MCV 91.9 MCH 31.6 H MCHC 34.4 RDW 12.4 Plt Count 190 MPV 7.6 Absolute Neuts (auto) 2.00 Absolute Lymphs (auto) 1.70 Absolute Monos (auto) 0.40 Absolute Eos (auto) 0.00 Absolute Basos (auto) 0.00 Neutrophils % 48.7 Lymphocytes % 40.1 Monocytes % 10.0 H Eosinophils % 0.4 L Basophils % 0.8 Sodium Potassium Chloride Carbon Dioxide Anion Gap BUN Creatinine BUN/Creatinine Ratio Random Glucose Serum Osmolality Calcium Total Bilirubin AST ALT Alkaline Phosphatase Serum Total Protein Albumin Globulin Albumin/Globulin Ratio Lipase Urine Color Yellow Urine Appearance Sl cloudy Urine pH 5.5 Ur Specific [place] 1.025 Urine Protein Negative Urine Glucose (UA) Negative Urine Ketones Trace Urine Blood Negative Urine Nitrite Negative Urine Bilirubin Negative Urine Urobilinogen 0.2 Ur Leukocyte Esterase Negative Urine RBC 0 Urine WBC 0-1 Ur Epithelial Cells 5-10 Urine Bacteria Rare Urine HCG, Qual Group A Strep Rapid Negative 04/07/19 04/07/19 09:55 21:49 WBC RBC Hgb Hct MCV MCH MCHC RDW Plt Count MPV Absolute Neuts (auto) Absolute Lymphs (auto) Absolute Monos (auto) Absolute Eos (auto) Absolute Basos (auto) Neutrophils % Lymphocytes % Monocytes % Eosinophils % Basophils % Sodium 139 Potassium 3.4 L Chloride 107 Carbon Dioxide 23 Anion Gap 12.4 BUN 11 Creatinine 0.70 BUN/Creatinine Ratio 15.7 Random Glucose 90 Serum Osmolality 276.5 Calcium 8.7 Total Bilirubin 0.4 AST 14 ALT 9 L Alkaline Phosphatase 37 L Serum Total Protein 7.4 Albumin 4.2 Globulin 3.2 Albumin/Globulin Ratio 1.3 Lipase 34 Urine Color Urine Appearance Urine pH Ur Specific [place] Urine Protein Urine Glucose (UA) Urine Ketones Urine Blood Urine Nitrite Urine Bilirubin Urine Urobilinogen Ur Leukocyte Esterase Urine RBC Urine WBC Ur Epithelial Cells Urine Bacteria Urine HCG, Qual Negative Group A Strep Rapid No laboratory evidence of infection. Patient's clinical exam is not suggestive of appendicitis. She thinks it is her ovarian cyst and I think she is likely correct. She had a CT ab/pelvis done 8 months ago when she had similar symptoms and it was negative. It would not be appropriate to repeat that exam at this time. Patient given Toradol 30 mg IM x one in the E.D. and RX for Toradol. Instructed to follow up with a pcp for possible ultrasound. Care instructions given. E.R. warnings given. Questions were elicited and answered. Patient voiced understanding and agreement with the plan. Departure - Departure Clinical Impression: Abdominal pain Disposition: Discharge to Home or Self Care Condition: Good Departure Forms: ED Discharge - Pt. Copy, Patient Portal Self Enrollment Instructions: DI for Abdominal Pain-Adult Diet: resume usual diet Activity: increase activity as tolerated Referrals: Irene Cheema NP [Primary Care Provider] - 1-2 Weeks Prescriptions: Ketorolac Tromethamine [Toradol Tabs] 10 mg PO Q6HRS PRN #10 tab PRN Reason: Pain Home Medications: Ambulatory Orders Zolpidem Tartrate [Ambien] 10 mg PO BEDTIME 08/26/18 Ketorolac Tromethamine [Toradol Tabs] 10 mg PO Q6HRS PRN #10 tab 04/07/19 Oxcarbazepine [Trileptal] 600 mg PO DAILY 04/07/19 Additional Instructions: See a primary care physician of your choice for possible ultrasound. If you develop a temperature of 100.4 or greater, if the abdominal pain becomes worse, or if you have vaginal bleeding, return immediately to the E.R.
[2019-04-07 22:33] VITALS: BP 121/66; O2SAT 99
[2019-04-07] MEDS ORDERED: KETOROLAC TROMETHAMINE INJ 30 MG/ML VIAL IM ONE (22:35)
== END 2019-04-07 22:50 | disposition home or self-care (01) ==
LOC: ER 21:27
DX: R10.31 Right lower quadrant pain (principal); J02.9 Acute pharyngitis, unspecified; F32.9 Major depressive disorder, single episode, unspecified; J45.909 Unspecified asthma, uncomplicated; Z87.42 Personal history of other diseases of the female genital tract; Z97.5 Presence of (intrauterine) contraceptive device; Z88.2 Allergy status to sulfonamides; Z88.1 Allergy status to other antibiotic agents
CPT/HCPCS: 36415; 80053; 81001; 81025; 83690; 85025; 87070; 87880; J1885

== ENCOUNTER 2019-04-17 22:48 | Emergency (ER) | payer SELFPAY ==
[2019-04-17 23:02] VITALS: TEMP 97.8
--- NOTE | 2019-04-17 23:19 | ED.PDOC ---
History of Present Illness - General Chief Complaint: Abdominal Pain Stated Complaint: RLQ pain for the past 4 hours Time Seen by Provider: 04/17/19 23:10 Information Source: patient Exam Limitations: no limitations - History of Present Illness Initial Comments: Carole Gonsalez 33 y/o female came to ER with dull RLQ pain tonight ,no N/V ,able to eat no dysuria,no diarrhea,no constipation.Had same symptoms in the past was diagnosed with ovarian cyst and was supposed to see Dr. Acosta Assembler Final for follow up but stated tired to call him up for appointment but never called back .Has been amenorrheic for the last 7 years since she have iud.Had CT abd/p 8 months ago no acute findings noted. Abdominal Pain Onset Location: RLQ Pain Radiation: no radiation Quality: moderate, dull Timing/Duration: 1-3 hours Improving Factors: nothing Worsening Factors: nothing Associated Symptoms: other - see hpi Review of Systems - Review of Systems Gastrointestinal/Abdominal: States: see HPI, abdominal pain All other Systems: Reviewed and Negative, No Change from Baseline Past Medical History (General) - Patient Medical History Hx Seizures: No Hx Stroke: No Hx Dementia: No Hx Asthma: Yes Hx of COPD: No Hx Cardiac Disorders: No Hx Congestive Heart Failure: No Hx Pacemaker: No Hx Hypertension: No Hx Thyroid Disease: No Hx Diabetes: No Hx Gastroesophageal Reflux: No Hx Renal Disease: No Hx Cancer: No Hx of HIV: No Hx Hepatitis C: No Hx MRSA: No Surgical History: no surgical history - Vaccination History Hx Tetanus, Diphtheria Vaccination: Yes Hx Influenza Vaccination: Yes Hx Pneumococcal Vaccination: No - Social History Hx Tobacco Use: No Hx Chewing Tobacco Use: No Hx Alcohol Use: No Hx Substance Use: No Hx Substance Use Treatment: No Hx Depression: Yes Hx Physical Abuse: No Hx Emotional Abuse: No Hx Suspected Abuse: No - Female History Patient is a Female of Child Bearing Age (10 -59 yrs old): Yes Patient : No - IUD Family Medical History - Family History Mother Living Status: Still Living Hx Family Hypertension: Yes Hx Family Diabetes: Yes Physical Exam - Physical Exam General Appearance: Alert, Comfortable, No apparent distress Eyes, Ears, Nose, Throat Exam: normal ENT inspection Neck: normal inspection Respiratory: lungs clear, normal breath sounds Cardiovascular/Chest: normal peripheral pulses, regular rate, rhythm, no murmur Peripheral Pulses: No deficit Gastrointestinal/Abdominal: soft, no organomegaly, tenderness - RLQ no peritoneal signs Back Exam: no CVA tenderness, no vertebral tenderness Extremity: no pedal edema, no calf tenderness Neurologic: alert, oriented x 3 Lymphatic: no adenopathy Progress - Progress Progress: 04/17/19 23:30 Vital Signs - 8 hr 04/17/19 23:00 Temperature 97.8 F Pulse Rate [ 93 H Left Apical] Respiratory 20 Rate Blood Pressure 141/73 [Left Arm] O2 Sat by Pulse 99 Oximetry - Results/Orders Results/Orders: Vital Signs - 8 hr 04/17/19 04/18/19 23:00 00:00 Temperature 97.8 F Pulse Rate [ 93 H 90 Left Apical] Respiratory 20 18 Rate Blood Pressure 141/73 112/65 [Left Arm] O2 Sat by Pulse 99 98 Oximetry 04/17/19 23:19 IV Care:Saline Lock per Protoc QSHIFT Laboratory Results - last 24 hr 04/17/19 04/17/19 04/17/19 23:19 23:19 23:20 WBC RBC Hgb Hct MCV MCH MCHC RDW Plt Count MPV Absolute Neuts (auto) Absolute Lymphs (auto) Absolute Monos (auto) Absolute Eos (auto) Absolute Basos (auto) Neutrophils % Lymphocytes % Monocytes % Eosinophils % Basophils % Sodium 142 Potassium 3.2 L Chloride 106 Carbon Dioxide 27 Anion Gap 12.2 BUN 6 L Creatinine 0.74 BUN/Creatinine Ratio 8.1 L Random Glucose 103 Serum Osmolality 281.0 Calcium 9.3 Total Bilirubin 0.5 AST 16 ALT 11 Alkaline Phosphatase 42 Serum Total Protein 7.1 Albumin 4.2 Globulin 2.9 Albumin/Globulin Ratio 1.4 Serum HCG, Qual Negative Urine Color Yellow Urine Appearance Clear Urine pH 6.5 Ur Specific [place] 1.010 Urine Protein Negative Urine Glucose (UA) Negative Urine Ketones Negative Urine Blood Negative Urine Nitrite Negative Urine Bilirubin Negative Urine Urobilinogen 0.2 Ur Leukocyte Esterase Negative Urine RBC 0 Urine WBC 0-1 Ur Epithelial Cells 3-5 Urine Bacteria 0 04/17/19 23:27 WBC 5.1 RBC 4.00 L Hgb 12.6 Hct 36.9 MCV 92.2 MCH 31.5 H MCHC 34.1 RDW 12.2 Plt Count 245 MPV 7.8 Absolute Neuts (auto) 2.90 Absolute Lymphs (auto) 1.60 Absolute Monos (auto) 0.50 Absolute Eos (auto) 0.00 Absolute Basos (auto) 0.00 Neutrophils % 56.5 Lymphocytes % 32.4 Monocytes % 9.7 H Eosinophils % 0.6 L Basophils % 0.8 Sodium Potassium Chloride Carbon Dioxide Anion Gap BUN Creatinine BUN/Creatinine Ratio Random Glucose Serum Osmolality Calcium Total Bilirubin AST ALT Alkaline Phosphatase Serum Total Protein Albumin Globulin Albumin/Globulin Ratio Serum HCG, Qual Urine Color Urine Appearance Urine pH Ur Specific [place] Urine Protein Urine Glucose (UA) Urine Ketones Urine Blood Urine Nitrite Urine Bilirubin Urine Urobilinogen Ur Leukocyte Esterase Urine RBC Urine WBC Ur Epithelial Cells Urine Bacteria Discuss all test results with patient - EKG/XRAY/CT XRAY: abdomen - iud intact Departure - Departure Clinical Impression: Abdominal pain Qualifiers: Abdominal location: right lower quadrant Qualified Code(s): R10.31 - Right lower quadrant pain Time of Disposition: 00:30 Disposition: Discharge to Home or Self Care Condition: Good Departure Forms: ED Discharge - Pt. Copy, Patient Portal Self Enrollment Instructions: DI for Abdominal Pain-Adult Referrals: Irene Cheema NP [Primary Care Provider] - 1-2 Weeks Prescriptions: Acetaminophen W/ Codeine [Tylenol/Codeine #4 300-60 mg] 1 ea PO Q4HR PRN #2 tab PRN Reason: Pain Home Medications: Ambulatory Orders Zolpidem Tartrate [Ambien] 10 mg PO BEDTIME 08/26/18 LORazepam [Ativan] 1 mg PO BID 04/17/19 Acetaminophen W/ Codeine [Tylenol/Codeine #4 300-60 mg] 1 ea PO Q4HR PRN #2 tab 04/18/19 Additional Instructions: Need to schedule follow up appointment with Assembler Final Dr. Dave GARZA;Return to emergency room as needed;May also take over the counter medication Aleve 1-2 tablets am/pm for pain
[2019-04-17] MEDS: HYDROcodone 7.5MG/APAP 325MG 1 EA TAB PO ONE (23:35)
[2019-04-17] MEDS: PROCHLORPERAZINE INJ 10 MG/2 ML VIAL IV ONE (23:35)
[2019-04-17] MEDS: KETOROLAC TROMETHAMINE INJ 30 MG/ML VIAL IV ONE (23:35)
[2019-04-17] MEDS: SODIUM CHLORIDE 0.9% 500ML 500 ML IVS ONE (23:36)
[2019-04-18 00:05] VITALS: O2SAT 98
--- NOTE | 2019-04-18 00:21 | RAD ---
EXAM DESCRIPTION: Abdomen 1 View CLINICAL HISTORY: 33 years Female pain/iud COMPARISON: CT abdomen and pelvis study from 08/26/2018. TECHNIQUE: Single view of the abdomen. FINDINGS: The lung bases and upper abdomen were not included on the film. IUD is visualized which appears similar in position compared to the previous CT study. No dilated loops of small bowel are identified to suggest small bowel obstruction. No significant calcific densities are identified. IMPRESSION: No acute plain film abnormality is identified. Electronically signed by: René Briceno MD 04/18/2019 12:19 AM CDT
[2019-04-18] MEDS: HYDROCOD/APAP 5/325 (ER DISP) #3 TAB PO ONE (00:40)
[2019-04-18 00:48] VITALS: BP 104/64
== END 2019-04-18 00:46 | disposition home or self-care (01) ==
LOC: ER 22:48
DX: R10.31 Right lower quadrant pain (principal); F32.9 Major depressive disorder, single episode, unspecified; J45.909 Unspecified asthma, uncomplicated; Z97.5 Presence of (intrauterine) contraceptive device; Z87.42 Personal history of other diseases of the female genital tract
CPT/HCPCS: 74018; 80053; 81001; 84703; 85025; J0780; J1885; J7040

== ENCOUNTER 2019-05-27 18:04 | Emergency (ER) | payer SELFPAY ==
[2019-05-27 18:22] VITALS: TEMP 98.4; O2SAT 98
--- NOTE | 2019-05-27 18:28 | ED.PDOC ---
History of Present Illness - General Chief Complaint: General Stated Complaint: sore throat,cough,ear pain Time Seen by Provider: 05/27/19 18:28 Source: patient Exam Limitations: no limitations - History of Present Illness Initial Comments: 33 yo F with hx of asthma who presents for sore throat onset three days ago, now worsening, pain radiates into L ear. Denies a flare up of her asthma at this time. Has neb machine at home with medicine however is requesting albuterol inhaler. Denies sick contacts, recent travel, f/c, eye drainage/redness, cough, congestion, CP, SOB, wheezing. Allergies/Adverse Reactions: Allergies Sulfa Drugs Allergy (Intermediate, Verified 04/17/19 23:03) Levofloxacin [From Levaquin] Allergy (Verified 04/17/19 23:03) Home Medications: Ambulatory Orders Zolpidem Tartrate [Ambien] 10 mg PO BEDTIME 08/26/18 LORazepam [Ativan] 1 mg PO BID 04/17/19 Levocetirizine Dihydrochloride [Xyzal Allergy 24Hr] 5 mg PO DAILY 05/27/19 Oxcarbazepine [Trileptal] 600 mg PO BEDTIME 05/27/19 RX: Albuterol Inhaler [Ventolin Hfa Inhaler] 1 puff INH Q4HR PRN #1 inh 05/27/19 Review of Systems - Review of Systems Constitutional: Denies: chills, fever EENTM: States: ear pain, throat pain. Denies: eye pain, blurred vision, ear discharge, nose congestion Respiratory: Denies: cough, short of breath, wheezing Cardiology: Denies: chest pain, edema, palpitations Gastrointestinal/Abdominal: Denies: abdominal pain, nausea, vomiting Musculoskeletal: Denies: muscle stiffness, neck pain Skin: Denies: lesions, rash Neurological: Denies: headache, numbness, weakness Past Medical History (General) - Patient Medical History Hx Seizures: No Hx Stroke: No Hx Dementia: No Hx Asthma: Yes Hx of COPD: No Hx Cardiac Disorders: No Hx Congestive Heart Failure: No Hx Pacemaker: No Hx Hypertension: No Hx Thyroid Disease: No Hx Diabetes: No Hx Gastroesophageal Reflux: No Hx Renal Disease: No Hx Cancer: No Hx of HIV: No Hx Hepatitis C: No Hx MRSA: No Surgical History: no surgical history - Vaccination History Hx Tetanus, Diphtheria Vaccination: Yes Hx Influenza Vaccination: Yes Hx Pneumococcal Vaccination: No - Social History Hx Tobacco Use: No Hx Chewing Tobacco Use: No Hx Alcohol Use: No Hx Substance Use: No Hx Substance Use Treatment: No Hx Depression: Yes Hx Physical Abuse: No Hx Emotional Abuse: No Hx Suspected Abuse: No - Female History Patient is a Female of Child Bearing Age (10 -59 yrs old): Yes - has an IUD Patient : No - IUD Family Medical History - Family History Mother Living Status: Still Living Hx Family Hypertension: Yes Hx Family Diabetes: Yes Physical Exam - Physical Exam General Appearance: Alert, Well Developed, Well Nourished Eye Exam: bilateral normal Ears, Nose, Throat: other - Posterior pharynx erythema, no tonsillar exudate, no peritonsillar abscess. Uvula midline. No hot potato voice. TM without erythema, ear canal without discharge. Neck: non-tender, full range of motion, supple Respiratory: chest non-tender, lungs clear, normal breath sounds, no respiratory distress, no accessory muscle use Cardiovascular/Chest: normal peripheral pulses, regular rate, rhythm, no edema, no gallop, no JVD, no murmur Neurologic: alert, other - Grossly intact. Normal gait. Skin Exam: normal color, warm/dry Progress - Progress Progress: 05/27/19 20:00 I have explained and reviewed all results with the pt. Strep negative, given dexamethasone in ED. I explained that emergent conditions may arise and to return to the ER for new, worsening, or any persistent conditions. I've e xplained the importance of f/u for recheck. All questions and concerns addressed at this time. Pt understands and agrees with plan. Pt well appearing, NAD, is stable for discharge. Cori Lafleur MD Emergency Medicine Physician Billing Number [id number] - Results/Orders Results/Orders: 05/27/19 19:15 STREP A SCREEN CULTURE Stat Laboratory Results - last 24 hr 05/27/19 05/27/19 05/27/19 19:15 19:15 Unknown Urine Color Yellow Urine Appearance Sl cloudy Urine pH 7.0 Ur Specific [place] 1.020 Urine Protein Negative Urine Glucose (UA) Negative Urine Ketones Negative Urine Blood Negative Urine Nitrite Negative Urine Bilirubin Negative Urine Urobilinogen 0.2 Ur Leukocyte Esterase Negative Urine RBC 0 Urine WBC 0-1 Ur Epithelial Cells 1-3 Amorphous Sediment Trace Urine Bacteria Rare Urine HCG, Qual Negative Group A Strep Rapid Negative Departure - Departure Clinical Impression: Pharyngitis Qualifiers: Pharyngitis/tonsillitis etiology: unspecified etiology Qualified Code(s): J02.9 - Acute pharyngitis, unspecified Time of Disposition: 19:47 Disposition: Discharge to Home or Self Care Health Concerns: Condition: Stable Departure Forms: ED Discharge - Pt. Copy, Patient Portal Self Enrollment Instructions: Sore Throat, Adult (DC) Referrals: Irene Cheema NP [Primary Care Provider] - 1-5 Days Prescriptions: RX: Albuterol Inhaler [Ventolin Hfa Inhaler] 1 puff INH Q4HR PRN #1 inh PRN Reason: Wheezing Home Medications: Ambulatory Orders Zolpidem Tartrate [Ambien] 10 mg PO BEDTIME 08/26/18 LORazepam [Ativan] 1 mg PO BID 04/17/19 Levocetirizine Dihydrochloride [Xyzal Allergy 24Hr] 5 mg PO DAILY 05/27/19 Oxcarbazepine [Trileptal] 600 mg PO BEDTIME 05/27/19 RX: Albuterol Inhaler [Ventolin Hfa Inhaler] 1 puff INH Q4HR PRN #1 inh 05/27/19 Additional Instructions: Follow up: [facility] As needed, if symptoms worsen
[2019-05-27] MEDS ORDERED: DEXAMETHASONE INJ 10 MG/ML VIAL IM ONE (18:54)
[2019-05-27 20:04] VITALS: BP 103/64
== END 2019-05-27 20:04 | disposition home or self-care (01) ==
LOC: ER 18:04
DX: J02.9 Acute pharyngitis, unspecified (principal); F32.9 Major depressive disorder, single episode, unspecified; J45.909 Unspecified asthma, uncomplicated; Z79.899 Other long term (current) drug therapy; Z88.2 Allergy status to sulfonamides; Z88.1 Allergy status to other antibiotic agents
CPT/HCPCS: 81001; 81025; 87070; 87880; J1100

== ENCOUNTER 2019-06-06 17:10 | Emergency (ER) | payer SELFPAY ==
[2019-06-06] MEDS ORDERED: NEO/POLY/HC OTIC SUSP 10 ML BTTL ONE (18:08)
--- NOTE | 2019-06-06 18:34 | ED.PDOC ---
History of Present Illness - General Chief Complaint: ENT Problem Stated Complaint: left ear, jaw and neck pain Time Seen by Provider: 06/06/19 18:29 Source: patient, RN notes reviewed, Vital Signs reviewed Exam Limitations: no limitations Additional Information: Pt presents with c/o left ear pain radiating down her neck and into her jaw. Started 2 days ago. Worsening. Heat packs initially helped but now they don't. Pt denies f/c/n/v/d. Pain worse with palpation or ear traction or chewing. - History of Present Illness Timing/Duration: gradual Severity: severe EENT Location: ear (L) Prearrival Treatment: other - heat packs, motrin/tylenol. Improving Factors: nothing Worsening Factors: eating, movement Associated Symptoms: facial pain/swelling Allergies/Adverse Reactions: Allergies Sulfa Drugs Allergy (Intermediate, Verified 04/17/19 23:03) Levofloxacin [From Levaquin] Allergy (Verified 04/17/19 23:03) Home Medications: Ambulatory Orders Zolpidem Tartrate [Ambien] 10 mg PO BEDTIME 08/26/18 LORazepam [Ativan] 1 mg PO BID 04/17/19 Albuterol Inhaler [Ventolin Hfa Inhaler] 1 puff INH Q4HR PRN #1 inh 05/27/19 Levocetirizine Dihydrochloride [Xyzal Allergy 24Hr] 5 mg PO DAILY 05/27/19 Oxcarbazepine [Trileptal] 600 mg PO BEDTIME 05/27/19 Acetaminophen W/ Codeine [Tylenol W/ CODEINE #3] 1 ea PO Q6HRS #16 MDD 4 06/06/19 Ondansetron Odt [Zofran ODT] 4 mg PO Q6HR #10 tab 06/06/19 Review of Systems - Review of Systems Constitutional: States: no symptoms reported EENTM: States: see HPI, ear pain. Denies: nose pain, nose congestion, mouth pain, mouth swelling Respiratory: States: no symptoms reported, see HPI Cardiology: States: no symptoms reported, see HPI Gastrointestinal/Abdominal: States: no symptoms reported, see HPI Genitourinary: States: no symptoms reported Musculoskeletal: States: no symptoms reported Skin: States: no symptoms reported Neurological: States: no symptoms reported All other Systems: Reviewed and Negative Past Medical History (General) - Patient Medical History Hx Seizures: No Hx Stroke: No Hx Dementia: No Hx Asthma: Yes Hx of COPD: No Hx Cardiac Disorders: No Hx Congestive Heart Failure: No Hx Pacemaker: No Hx Hypertension: No Hx Thyroid Disease: No Hx Diabetes: No Hx Gastroesophageal Reflux: No Hx Renal Disease: No Hx Cancer: No Hx of HIV: No Hx Hepatitis C: No Hx MRSA: No - Vaccination History Hx Tetanus, Diphtheria Vaccination: Yes Hx Influenza Vaccination: Yes Hx Pneumococcal Vaccination: No - Social History Hx Tobacco Use: No Hx Chewing Tobacco Use: No Hx Alcohol Use: No Hx Substance Use: No Hx Substance Use Treatment: No Hx Depression: Yes Hx Physical Abuse: No Hx Emotional Abuse: No Hx Suspected Abuse: No - Female History Patient : No - IUD Family Medical History - Family History Mother Living Status: Still Living Hx Family Hypertension: Yes Hx Family Diabetes: Yes Physical Exam - Physical Exam General Appearance: Anxious, Restless, Well Groomed, Well Hydrated, Well Nourished Eye Exam: bilateral normal Ear Exam: left ear: auricle normal - pain with tragal traction, canal normal - red, swollen, canal detritus, erythema - left ear canal, bilateral ear: TM normal Throat Exam: normal mouth inspection, pharynx normal Neck: lymphadenopathy (L), tender lateral Cardiovascular/Respiratory: regular rate, rhythm, no M/R/G, normal peripheral pulses, no JVD, normal breath sounds, no respiratory distress Abdominal Exam: non-tender, no organomegaly Neurologic: corporate licensed broker II-XII nml as tested, no motor/sensory deficits, alert, normal mood/affect, oriented x 3 Skin Exam: normal color, warm/dry Progress - Progress Progress: 06/06/19 18:[address] and Cortisporin suspension instilled. Pt improved after im pain meds. Departure - Departure Clinical Impression: Otitis externa Qualifiers: Otitis externa type: unspecified type Chronicity: acute Laterality: left Qualified Code(s): H60.502 - Unspecified acute noninfective otitis externa, left ear Time of Disposition: 18:42 Disposition: Discharge to Home or Self Care Condition: Fair Departure Forms: ED Discharge - Pt. Copy, Patient Portal Self Enrollment Instructions: DI for Otitis Externa, DI for Ear Pain-Adult Referrals: Irene Cheema NP [Primary Care Provider] - 1-2 Weeks Prescriptions: Acetaminophen W/ Codeine [Tylenol W/ CODEINE #3] 1 ea PO Q6HRS #16 MDD 4 Ondansetron Odt [Zofran ODT] 4 mg PO Q6HR #10 tab Home Medications: Ambulatory Orders Zolpidem Tartrate [Ambien] 10 mg PO BEDTIME 08/26/18 LORazepam [Ativan] 1 mg PO BID 04/17/19 Albuterol Inhaler [Ventolin Hfa Inhaler] 1 puff INH Q4HR PRN #1 inh 05/27/19 Levocetirizine Dihydrochloride [Xyzal Allergy 24Hr] 5 mg PO DAILY 05/27/19 Oxcarbazepine [Trileptal] 600 mg PO BEDTIME 05/27/19 Acetaminophen W/ Codeine [Tylenol W/ CODEINE #3] 1 ea PO Q6HRS #16 MDD 4 06/06/19 Ondansetron Odt [Zofran ODT] 4 mg PO Q6HR #10 tab 06/06/19
[2019-06-06] MEDS ORDERED: KETOROLAC TROMETHAMINE INJ 30 MG/ML VIAL IM ONE (18:52)
[2019-06-06] MEDS ORDERED: KETOROLAC TROMETHAMINE INJ 30 MG/ML VIAL ONE (18:54)
[2019-06-06 19:10] VITALS: BP 115/57; TEMP 98.1; O2SAT 99
== END 2019-06-06 19:04 | disposition home or self-care (01) ==
LOC: ER 17:10
DX: H60.502 Unspecified acute noninfective otitis externa, left ear (principal); F32.9 Major depressive disorder, single episode, unspecified; J45.909 Unspecified asthma, uncomplicated; Z79.899 Other long term (current) drug therapy; Z88.2 Allergy status to sulfonamides; Z88.1 Allergy status to other antibiotic agents

== ENCOUNTER 2019-06-10 12:32 | Emergency (ER) | payer SELFPAY ==
--- NOTE | 2019-06-10 13:01 | ED.PDOC ---
History of Present Illness - General Chief Complaint: ENT Problem Stated Complaint: Ear wick to L ear Time Seen by Provider: 06/10/19 12:58 - History of Present Illness Initial Comments: 33-year-old female presents 4 days status post ED visit for left otitis externa requesting ear wick removal. Patient denies any complaints at this time and endorses ear pain is feeling better. Patient has utilized the d provided by her 3-4 times daily since she received them. She denies any associated fevers/chills/nausea/vomiting. Patient is otherwise healthy with no other sns symptoms complaints. Allergies/Adverse Reactions: Allergies Sulfa Drugs Allergy (Intermediate, Verified 04/17/19 23:03) Levofloxacin [From Levaquin] Allergy (Verified 04/17/19 23:03) Home Medications: Ambulatory Orders Zolpidem Tartrate [Ambien] 10 mg PO BEDTIME 08/26/18 LORazepam [Ativan] 1 mg PO BID 04/17/19 Levocetirizine Dihydrochloride [Xyzal Allergy 24Hr] 5 mg PO DAILY 05/27/19 Oxcarbazepine [Trileptal] 600 mg PO BEDTIME 05/27/19 RX: Albuterol Inhaler [Ventolin Hfa Inhaler] 1 puff INH Q4HR PRN #1 inh 05/27/19 Acetaminophen W/ Codeine [Tylenol W/ CODEINE #3] 1 ea PO Q6HRS #16 MDD 4 06/06/19 Ondansetron Odt [Zofran ODT] 4 mg PO Q6HR #10 tab 06/06/19 Review of Systems - Review of Systems Constitutional: Denies: chills, fever EENTM: Denies: ear pain, ear discharge Gastrointestinal/Abdominal: Denies: nausea, vomiting Past Medical History (General) - Patient Medical History Hx Seizures: No Hx Stroke: No Hx Dementia: No Hx Asthma: Yes Hx of COPD: No Hx Cardiac Disorders: No Hx Congestive Heart Failure: No Hx Pacemaker: No Hx Hypertension: No Hx Thyroid Disease: No Hx Diabetes: No Hx Gastroesophageal Reflux: No Hx Renal Disease: No Hx Cancer: No Hx of HIV: No Hx Hepatitis C: No Hx MRSA: No - Vaccination History Hx Tetanus, Diphtheria Vaccination: Yes Hx Influenza Vaccination: Yes Hx Pneumococcal Vaccination: No - Social History Hx Tobacco Use: No Hx Chewing Tobacco Use: No Hx Alcohol Use: No Hx Substance Use: No Hx Substance Use Treatment: No Hx Depression: Yes Hx Physical Abuse: No Hx Emotional Abuse: No Hx Suspected Abuse: No - Female History Patient : No - IUD Family Medical History - Family History Mother Living Status: Still Living Hx Family Hypertension: Yes Hx Family Diabetes: Yes Physical Exam - Physical Exam General Appearance: Alert, Comfortable Ear Exam: left ear: auricle normal, canal normal - mild erythema and edema, wick removed with patent passageway and no exudates, TM normal Neck: full range of motion, supple Cardiovascular/Respiratory: regular rate, rhythm, normal breath sounds, no respiratory distress Procedures - Foreign Body Removal Foreign Body Removal: other - earache placed in left EAC removed with alligator forceps. Verbal consent of the patient. Patient however procedure well without complications. Entire wick removed without any residual left Departure - Departure Clinical Impression: Foreign body in auricle of left ear Qualifiers: Encounter type: initial encounter Qualified Code(s): T16.2XXA - Foreign body in left ear, initial encounter Otitis externa Qualifiers: Otitis externa type: unspecified type Chronicity: acute Laterality: left Qualified Code(s): H60.502 - Unspecified acute noninfective otitis externa, left ear Time of Disposition: 13:00 Disposition: Discharge to Home or Self Care Condition: Excellent Departure Forms: ED Discharge - Pt. Copy, Patient Portal Self Enrollment Instructions: DI for Otitis Externa, DI for Ear Pain-Adult Referrals: Irene Cheema, [employer]APH[employer] DES[employer] ASSISTANT [Primary Care Provider] - 1-2 Weeks Home Medications: Ambulatory Orders Zolpidem Tartrate [Ambien] 10 mg PO BEDTIME 08/26/18 LORazepam [Ativan] 1 mg PO BID 04/17/19 Levocetirizine Dihydrochloride [Xyzal Allergy 24Hr] 5 mg PO DAILY 05/27/19 Oxcarbazepine [Trileptal] 600 mg PO BEDTIME 05/27/19 RX: Albuterol Inhaler [Ventolin Hfa Inhaler] 1 puff INH Q4HR PRN #1 inh 05/27/19 Acetaminophen W/ Codeine [Tylenol W/ CODEINE #3] 1 ea PO Q6HRS #16 MDD 4 06/06/19 Ondansetron Odt [Zofran ODT] 4 mg PO Q6HR #10 tab 06/06/19
[2019-06-10 13:04] VITALS: BP 122/73; TEMP 97.1; O2SAT 100
== END 2019-06-10 13:20 | disposition home or self-care (01) ==
LOC: ER 12:32
DX: T16.2XXA Foreign body in left ear, initial encounter (principal); H60.502 Unspecified acute noninfective otitis externa, left ear; J45.909 Unspecified asthma, uncomplicated; F32.9 Major depressive disorder, single episode, unspecified; Z79.899 Other long term (current) drug therapy; Z88.2 Allergy status to sulfonamides; Z88.1 Allergy status to other antibiotic agents

== ENCOUNTER 2019-08-13 13:21 | Emergency (ER) | payer SELFPAY ==
[2019-08-13] MEDS ORDERED: KETOROLAC TROMETHAMINE INJ 30 MG/ML VIAL IM ONE (13:29)
--- NOTE | 2019-08-13 13:34 | ED.PDOC ---
History of Present Illness - General Time Seen by Provider: 08/13/19 13:28 Source: patient, Vital Signs reviewed Exam Limitations: no limitations - History of Present Illness Initial Comments: this is a 34 year old female, with hx of asthma, patient presents with right ankle right knee pain after fall, he tripped. Patient denies head trauma. Patient have been trying to no put any weight on it. Patient stated that pain is a 6 out of 10. Occurred: other - Monday night Pain - Lower Extremity: mild: Right Knee, Right Ankle Method of Injury: fell Allergies/Adverse Reactions: Allergies Sulfa Drugs Allergy (Intermediate, Verified 04/17/19 23:03) Levofloxacin [From Levaquin] Allergy (Verified 04/17/19 23:03) Home Medications: Ambulatory Orders Zolpidem Tartrate [Ambien] 10 mg PO BEDTIME 08/26/18 LORazepam [Ativan] 1 mg PO BID 04/17/19 Albuterol Inhaler [Ventolin Hfa Inhaler] 1 puff INH Q4HR PRN #1 inh 05/27/19 Levocetirizine Dihydrochloride [Xyzal Allergy 24Hr] 5 mg PO DAILY 05/27/19 Oxcarbazepine [Trileptal] 600 mg PO BEDTIME 05/27/19 Acetaminophen W/ Codeine [Tylenol W/ CODEINE #3] 1 ea PO Q6HRS #16 MDD 4 06/06/19 Ondansetron Odt [Zofran ODT] 4 mg PO Q6HR #10 tab 06/06/19 Ibuprofen [Motrin] 600 mg PO Q6HRS 5 Days #20 tab 08/13/19 Review of Systems - Review of Systems Constitutional: States: no symptoms reported EENTM: States: no symptoms reported Respiratory: States: no symptoms reported Cardiology: States: no symptoms reported Gastrointestinal/Abdominal: States: no symptoms reported Genitourinary: States: no symptoms reported Musculoskeletal: States: joint swelling Neurological: States: no symptoms reported Endocrine: States: no symptoms reported Hematologic/Lymphatic: States: no symptoms reported Past Medical History (General) - Patient Medical History Hx Seizures: No Hx Stroke: No Hx Dementia: No Hx Asthma: Yes Hx of COPD: No Hx Cardiac Disorders: No Hx Congestive Heart Failure: No Hx Pacemaker: No Hx Hypertension: No Hx Thyroid Disease: No Hx Diabetes: No Hx Gastroesophageal Reflux: No Hx Renal Disease: No Hx Cancer: No Hx of HIV: No Hx Hepatitis C: No Hx MRSA: No - Vaccination History Hx Tetanus, Diphtheria Vaccination: Yes Hx Influenza Vaccination: Yes Hx Pneumococcal Vaccination: No - Social History Hx Tobacco Use: No Hx Chewing Tobacco Use: No Hx Alcohol Use: No Hx Substance Use: No Hx Substance Use Treatment: No Hx Depression: Yes Hx Physical Abuse: No Hx Emotional Abuse: No Hx Suspected Abuse: No - Female History Patient : No - IUD Family Medical History - Family History Mother Living Status: Still Living Hx Family Hypertension: Yes Hx Family Diabetes: Yes Physical Exam - Physical Exam General Appearance: Alert, Comfortable, Well Developed, Well Groomed, Well Hydrated, Well Nourished Eyes, Ears, Nose, Throat: PERRL/EOMI, normal ENT inspection Neck: non-tender, full range of motion, supple, normal inspection Cardiovascular/Respiratory: regular rate, rhythm, no M/R/G, normal peripheral pulses, no JVD, normal breath sounds, no respiratory distress Gastrointestinal/Abdominal: non-tender, no organomegaly, no hernia Knee: other - there is abrasion below the patella without deformities, no decreaser ROM, no redness, no swellinig Ankle: other - no swelling no deformities and good cap refill Neuro/Tendon: normal motor functions, normal tendon functions Mental Status: alert, oriented x 3 Skin: normal color, warm/dry Progress - Progress Progress: 08/13/19 13:45 patient that presents with right knee pain and right ankle pain after fall on monday. No deformities seen and there was a small abrasion noted in patient right knee. x rays were done and no fractures or dislocations see patient was instructed to keep extremity elevated, may use ice pack no directly into the knee for at least 20 minutes - EKG/XRAY/CT XRAY: ankle Xray Comments: rays of both knee and ankle didnt show fractures and or dislocations Departure - Departure Clinical Impression: Sprain of knee Qualifiers: Encounter type: initial encounter Involved ligament of knee: unspecified ligament Laterality: right Qualified Code(s): S83.91XA - Sprain of unspecified site of right knee, initial encounter Sprain of ankle, right Qualifiers: Encounter type: initial encounter Involved ligament of ankle: unspecified ligament Qualified Code(s): S93.401A - Sprain of unspecified ligament of right ankle, initial encounter Disposition: Discharge to Home or Self Care Condition: Fair Instructions: DI for Knee Pain, DI for Leg Pain, Ankle Sprain (DC), Knee Sprain (DC) Referrals: Irene Cheema, [employer] MANAGER [Primary Care Provider] - 1-2 Weeks Prescriptions: Ibuprofen [Motrin] 600 mg PO Q6HRS 5 Days #20 tab Home Medications: Ambulatory Orders Zolpidem Tartrate [Ambien] 10 mg PO BEDTIME 08/26/18 LORazepam [Ativan] 1 mg PO BID 04/17/19 Albuterol Inhaler [Ventolin Hfa Inhaler] 1 puff INH Q4HR PRN #1 inh 05/27/19 Levocetirizine Dihydrochloride [Xyzal Allergy 24Hr] 5 mg PO DAILY 05/27/19 Oxcarbazepine [Trileptal] 600 mg PO BEDTIME 05/27/19 Acetaminophen W/ Codeine [Tylenol W/ CODEINE #3] 1 ea PO Q6HRS #16 MDD 4 06/06/19 Ondansetron Odt [Zofran ODT] 4 mg PO Q6HR #10 tab 06/06/19 Ibuprofen [Motrin] 600 mg PO Q6HRS 5 Days #20 tab 08/13/19
--- NOTE | 2019-08-13 13:47 | RAD ---
EXAM DESCRIPTION: Knee,Right 1 or 2 Views CLINICAL HISTORY: 34 years Female, fall COMPARISON: None. TECHNIQUE: 2 view radiograph of the right knee. IMPRESSION: No acute displaced fracture. No dislocation. Joint space is maintained. The tibial plateau is intact. Mild patellofemoral arthrosis. No significant knee joint effusion. No radiographically apparent soft tissue abnormality. Electronically signed by: Bg Rosa MD 08/13/2019 1:45 PM [facility]
--- NOTE | 2019-08-13 13:49 | RAD ---
EXAM DESCRIPTION: Ankle,Right 3 Views CLINICAL HISTORY: faall COMPARISON: None. IMPRESSION: 3 views of the right ankle show no acute fracture, focal bone destruction, or joint dislocation. The ankle mortise is maintained. Soft tissues are unremarkable. Electronically signed by: Demetrius Mckeon MD 08/13/2019 1:47 PM [facility]
[2019-08-13 14:20] VITALS: BP 109/66; TEMP 96.8; O2SAT 98
== END 2019-08-13 14:14 | disposition home or self-care (01) ==
LOC: ER 13:21
DX: S93.401A Sprain of unspecified ligament of right ankle, initial encounter (principal); S83.91XA Sprain of unspecified site of right knee, initial encounter; S80.811A Abrasion, right lower leg, initial encounter; F32.9 Major depressive disorder, single episode, unspecified; J45.909 Unspecified asthma, uncomplicated; Z79.899 Other long term (current) drug therapy; Z88.2 Allergy status to sulfonamides; Z88.1 Allergy status to other antibiotic agents; W01.0XXA Fall on same level from slipping, tripping and stumbling without subsequent striking against object, initial encounter; Y92.89 Other specified places as the place of occurrence of the external cause
CPT/HCPCS: 73560; 73610; J1885

== ENCOUNTER 2019-09-17 20:09 | Emergency (ER) | payer BC ==
[2019-09-17 20:29] VITALS: TEMP 98.4
[2019-09-17] MEDS ORDERED: CLOTRIMAZOLE TOP ONE (21:18)
--- NOTE | 2019-09-17 21:20 | ED.PDOC ---
History of Present Illness - General Chief Complaint: Skin/Abrasion/Tear Stated Complaint: rash Time Seen by Provider: 09/17/19 21:06 Source: patient Exam Limitations: no limitations - History of Present Illness Initial Comments: RASH ON SHOULDER, STARTED YESTERDAY. NOW SMALL AREAS ARE SPREADING TO TRUNK TODAY. MILDLY PRURITIC. SHE HAS BEEN APPLYING NEOSPORIN AND COVERING WITH A BAND AID. Severity: moderate Location: torso Improving Factors: nothing Worsening Factors: nothing Associated Symptoms: rash Allergies/Adverse Reactions: Allergies Sulfa Drugs Allergy (Intermediate, Verified 04/17/19 23:03) Levofloxacin [From Levaquin] Allergy (Verified 04/17/19 23:03) Diphenhydramine [From Benadryl] Adverse Reaction (Verified 09/17/19 20:29) Home Medications: Ambulatory Orders Zolpidem Tartrate [Ambien] 10 mg PO BEDTIME 08/26/18 LORazepam [Ativan] 1 mg PO BID 04/17/19 Oxcarbazepine [Trileptal] 600 mg PO BEDTIME 05/27/19 Clotrimazole (Topical) [Clotrimazole Antifungal] 1 applic TOP BID 14 Days #1 tube 09/17/19 Review of Systems - Review of Systems Constitutional: States: no symptoms reported EENTM: States: no symptoms reported Respiratory: States: no symptoms reported Cardiology: States: no symptoms reported Gastrointestinal/Abdominal: States: no symptoms reported Genitourinary: States: no symptoms reported Musculoskeletal: States: no symptoms reported Skin: States: see HPI, change in color, rash Neurological: States: no symptoms reported Endocrine: States: no symptoms reported Hematologic/Lymphatic: States: no symptoms reported All other Systems: Reviewed and Negative Past Medical History (General) - Patient Medical History Hx Seizures: No Hx Stroke: No Hx Dementia: No Hx Asthma: Yes Hx of COPD: No Hx Cardiac Disorders: No Hx Congestive Heart Failure: No Hx Pacemaker: No Hx Hypertension: No Hx Thyroid Disease: No Hx Diabetes: No Hx Gastroesophageal Reflux: No Hx Renal Disease: No Hx Cancer: No Hx of HIV: No Hx Hepatitis C: No Hx MRSA: No - Vaccination History Hx Tetanus, Diphtheria Vaccination: Yes Hx Influenza Vaccination: Yes Hx Pneumococcal Vaccination: No - Social History Hx Tobacco Use: No Hx Chewing Tobacco Use: No Hx Alcohol Use: No Hx Substance Use: No Hx Substance Use Treatment: No Hx Depression: Yes Hx Physical Abuse: No Hx Emotional Abuse: No Hx Suspected Abuse: No - Female History Patient : No - IUD Family Medical History - Family History Mother Living Status: Still Living Hx Family Hypertension: Yes Hx Family Diabetes: Yes Physical Exam - Physical Exam General Appearance: Alert, No apparent distress Eyes, Ears, Nose, Throat Exam: normal ENT inspection Neck: normal inspection Cardiovascular/Chest: normal peripheral pulses, regular rate, rhythm Respiratory: lungs clear, normal breath sounds Back Exam: normal inspection Extremity: normal range of motion, normal inspection Neurologic: no motor/sensory deficits, alert, normal mood/affect Skin Exam: other - ANNULAR, RAISED, MILDLY ERYTHEMATOUS LESION ON L SHOULDER C/W RINGWORM. TINY SIMILAR PATCHES ARE FORMING ON ABDOMEN. Skin Problem Location: torso Skin Character: erythema, papules, patchy, urticarial Lymphatic: no adenopathy Progress - Results/Orders Results/Orders: TINEA CORPORIS (RINGWORM) - CLOTRIMAZOLE BID UNTIL RESOLVES . Departure - Departure Clinical Impression: Tinea corporis Disposition: Discharge to Home or Self Care Condition: Good Departure Forms: ED Discharge - Pt. Copy, Patient Portal Self Enrollment Instructions: Ringworm (DC) Diet: resume usual diet Activity: increase activity as tolerated Referrals: Irene Cheema NP [Primary Care Provider] - 1-2 Weeks Prescriptions: Clotrimazole (Topical) [Clotrimazole Antifungal] 1 applic TOP BID 14 Days #1 tube Home Medications: Ambulatory Orders Zolpidem Tartrate [Ambien] 10 mg PO BEDTIME 08/26/18 LORazepam [Ativan] 1 mg PO BID 04/17/19 Oxcarbazepine [Trileptal] 600 mg PO BEDTIME 05/27/19 Clotrimazole (Topical) [Clotrimazole Antifungal] 1 applic TOP BID 14 Days #1 tube 09/17/19 Additional Instructions: Please discontinue the Neosporin. Please refrain from covering with Bandaids, in order to allow it to air dry. Use the prescribed Clotrimazole twice per day for 2 weeks until the rashes are completely gone.
[2019-09-17 21:26] VITALS: BP 107/67; O2SAT 97
[2019-09-18] MEDS ORDERED: CLOTRIMAZOLE TOP SCH (09:00)
== END 2019-09-17 21:26 | disposition home or self-care (01) ==
LOC: ER 20:09
DX: B35.4 Tinea corporis (principal); F32.9 Major depressive disorder, single episode, unspecified; J45.909 Unspecified asthma, uncomplicated; Z79.899 Other long term (current) drug therapy; Z88.2 Allergy status to sulfonamides; Z88.1 Allergy status to other antibiotic agents; Z88.8 Allergy status to other drugs, medicaments and biological substances

== ENCOUNTER 2019-09-24 22:46 | Emergency (ER) | payer BC ==
[2019-09-24 23:05] VITALS: O2SAT 99
--- NOTE | 2019-09-24 23:29 | ED.PDOC ---
History of Present Illness - General Chief Complaint: Skin/Abrasion/Tear Stated Complaint: rash Time Seen by Provider: 09/24/19 23:21 Source: patient, RN notes reviewed, Vital Signs reviewed, old records - Medical records from last week. Exam Limitations: no limitations - History of Present Illness Initial Comments: Patient is a 34-year-old white female who presents with complaints of a rash that has spread since she was seen last week. Patient was seen in the emergency department and diagnosed with ringworm on her left shoulder. Over the last couple of days it is now spread to the rest of her back and her abdomen. The initial spot of ringworm on her left shoulder has been improving. Patient denies any history of immunosuppression, steroid use, HIV or hepatitis. The rash is moderate in intensity, it is itchy. It gets worse with hot water. Timing/Duration: week Severity: moderate Location: torso, extremities Improving Factors: nothing Worsening Factors: other - Hot showers Associated Symptoms: change in skin texture, itching Allergies/Adverse Reactions: Allergies Sulfa Drugs Allergy (Intermediate, Verified 04/17/19 23:03) Levofloxacin [From Levaquin] Allergy (Verified 04/17/19 23:03) Diphenhydramine [From Benadryl] Adverse Reaction (Verified 09/17/19 20:29) Home Medications: Ambulatory Orders Zolpidem Tartrate [Ambien] 10 mg PO BEDTIME 08/26/18 LORazepam [Ativan] 1 mg PO BID 04/17/19 Oxcarbazepine [Trileptal] 600 mg PO BEDTIME 05/27/19 Clotrimazole (Topical) [Clotrimazole Antifungal] 1 applic TOP BID 14 Days #1 tube 09/17/19 Fluconazole [Diflucan] 150 mg PO WKLY #4 tab 09/24/19 HYDROcodone 5MG/APAP 325MG [[place] 5/325] 1 ea PO 09/24/19 Review of Systems - Review of Systems Constitutional: States: no symptoms reported, see HPI EENTM: States: no symptoms reported Respiratory: States: no symptoms reported Cardiology: States: no symptoms reported Gastrointestinal/Abdominal: States: no symptoms reported Genitourinary: States: no symptoms reported Musculoskeletal: States: no symptoms reported Skin: States: see HPI, change in color, dryness, lesions, rash Neurological: States: no symptoms reported Endocrine: States: no symptoms reported Hematologic/Lymphatic: States: no symptoms reported All other Systems: Reviewed and Negative Past Medical History (General) - Patient Medical History Hx Seizures: No Hx Stroke: No Hx Dementia: No Hx Asthma: Yes Hx of COPD: No Hx Cardiac Disorders: No Hx Congestive Heart Failure: No Hx Pacemaker: No Hx Hypertension: No Hx Thyroid Disease: No Hx Diabetes: No Hx Gastroesophageal Reflux: No Hx Renal Disease: No Hx Cancer: No Hx of HIV: No Hx Hepatitis C: No Hx MRSA: No - Vaccination History Hx Tetanus, Diphtheria Vaccination: Yes Hx Influenza Vaccination: Yes Hx Pneumococcal Vaccination: No - Social History Hx Tobacco Use: No Hx Chewing Tobacco Use: No Hx Alcohol Use: No Hx Substance Use: No Hx Substance Use Treatment: No Hx Depression: Yes Hx Physical Abuse: No Hx Emotional Abuse: No Hx Suspected Abuse: No - Female History Patient is a Female of Child Bearing Age (10 -59 yrs old): Yes Patient : No - IUD - Triage Comment ED Triage Comment: Treated last week for ringworm left shoulder, and small areas to abdomen, but now areas are spreading to abdomen Family Medical History - Family History Mother Living Status: Still Living Hx Family Hypertension: Yes Hx Family Diabetes: Yes Physical Exam - Physical Exam General Appearance: Alert, Anxious, Well Developed, Well Hydrated, Well No urished Eyes, Ears, Nose, Throat Exam: PERRL/EOMI, normal ENT inspection, pharynx normal Neck: non-tender, full range of motion, supple, normal inspection Cardiovascular/Chest: normal peripheral pulses, regular rate, rhythm, no murmur Respiratory: chest non-tender, lungs clear, normal breath sounds, no respiratory distress Gastrointestinal/Abdominal: non tender, soft, no organomegaly Back Exam: no CVA tenderness, other - Patient with ringworm in various patches across her back. 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 Skin Problem Location: neck, upper extremities, torso Skin Character: lesion, patchy, rash, scales Lymphatic: no adenopathy Progress - Progress Progress: Differential diagnosis: Ringworm, medication reaction, rash NOS, blisters among others. 09/24/19 23:32 Plan discharge home on a prescription for Diflucan, 150 mg weekly x4 weeks. Discussed the plan of care as well as hygiene methods and house cleaning with the patient. She voices understanding and agreement with the plan of care. Patient to follow-up with PCP for possible referral to dermatology as well as HIV testing. René Cook M.D. #[id number] Departure - Departure Clinical Impression: Tinea corporis Time of Disposition: 23:34 Disposition: Discharge to Home or Self Care Condition: Good Departure Forms: ED Discharge - Pt. Copy, Patient Portal Self Enrollment Instructions: Ringworm (DC) Referrals: Irene Cheema, AUT[employer]IC DATA PROCESSING PLANNER [Primary Care Provider] - 1 Week Prescriptions: Fluconazole [Diflucan] 150 mg PO WKLY #4 tab Home Medications: Ambulatory Orders Zolpidem Tartrate [Ambien] 10 mg PO BEDTIME 08/26/18 LORazepam [Ativan] 1 mg PO BID 04/17/19 Oxcarbazepine [Trileptal] 600 mg PO BEDTIME 05/27/19 Clotrimazole (Topical) [Clotrimazole Antifungal] 1 applic TOP BID 14 Days #1 tube 09/17/19 Fluconazole [Diflucan] 150 mg PO WKLY #4 tab 09/24/19 HYDROcodone 5MG/APAP 325MG [[place] 5/325] 1 ea PO 09/24/19
[2019-09-24 23:51] VITALS: BP 116/64; TEMP 98.1
== END 2019-09-24 23:48 | disposition home or self-care (01) ==
LOC: ER 22:46
DX: B35.4 Tinea corporis (principal); F32.9 Major depressive disorder, single episode, unspecified; J45.909 Unspecified asthma, uncomplicated; Z79.899 Other long term (current) drug therapy; Z88.2 Allergy status to sulfonamides; Z88.1 Allergy status to other antibiotic agents; Z88.8 Allergy status to other drugs, medicaments and biological substances

== ENCOUNTER 2020-02-06 08:12 | Emergency (ER) | payer BC ==
[2020-02-06 08:32] VITALS: TEMP 98.2
[2020-02-06] MEDS: NAPROXEN SODIUM 220 MG TAB PO ONE (08:50)
[2020-02-06 09:42] VITALS: O2SAT 98
--- NOTE | 2020-02-06 09:42 | CT ---
EXAM DESCRIPTION: Head CLINICAL HISTORY: recurrent left ear/mastoid pain COMPARISON: May 25, 2018 TECHNIQUE: Noncontrast transaxial CT images of the head are obtained from base to vertex. This exam was performed according to our departmental dose-optimization program, which includes automated exposure control, adjustment of the mA and/or kV according to patient size and/or use of iterative reconstruction technique. FINDINGS: The midline structures are not displaced. The sulci are age appropriate. The lateral, third, and fourth ventricles are normal in size, shape, and anatomic positioning. There is no evidence of mass, mass effect, hydrocephalus, or acute intracranial hemorrhage. No abnormal extra axial fluid collections are seen. Normal armstrong-white differentiation is seen. The visualized bone windows show no depressed skull fracture or significant abnormality. The visualized paranasal sinuses and mastoid air cells are clear. Mild asymmetric prominence of the left parotid gland is partly included in [id number]. IMPRESSION: 1. No acute abnormality is seen on noncontrast CT of the head. 2. Mild asymmetric prominence of the superior left parotid gland is partly included in the [id number] and may be secondary to patient positioning. Consider further evaluation with carotid gland ultrasound if pain or point tenderness is in this region. Electronically signed by: Demetrius Mckeon MD 02/06/2020 9:40 AM CDT
--- NOTE | 2020-02-06 09:48 | ED.PDOC ---
History of Present Illness - General Chief Complaint: ENT Problem Stated Complaint: left ear pain Time Seen by Provider: 02/06/20 08:42 Source: patient Exam Limitations: no limitations - History of Present Illness Initial Comments: Today's the patient is a 34-year-old female presented emergency room secondary to left ear pain and pain a little bit behind the left ear for the last 2 days. She has had recurrent ear infections in the past. There does appear to be some history of seasonal allergies. No fever. No recent head CTs. Again there is some mild tenderness to palpation in the left mastoid. No other symptoms. No fever. No hearing loss. When the pain gets severe she does have some mild nausea.left ear drum is red. canal is clear Timing/Duration: other Severity: moderate Improving Factors: nothing Worsening Factors: nothing Associated Symptoms: nausea/vomiting Allergies/Adverse Reactions: Allergies Sulfa Drugs Allergy (Intermediate, Verified 02/06/20 08:28) Levofloxacin [From Levaquin] Allergy (Verified 02/06/20 08:28) Diphenhydramine [From Benadryl] Adverse Reaction (Verified 02/06/20 08:28) Home Medications: Ambulatory Orders Zolpidem Tartrate [Ambien] 10 mg PO BEDTIME 08/26/18 LORazepam [Ativan] 1 mg PO BID 04/17/19 Oxcarbazepine [Trileptal] 600 mg PO BEDTIME 05/27/19 Clotrimazole (Topical) [Clotrimazole Antifungal] 1 applic TOP BID 14 Days #1 tu be 09/17/19 Fluconazole [Diflucan] 150 mg PO WKLY #4 tab 09/24/19 HYDROcodone 5MG/APAP 325MG [[place] 5/325] 1 ea PO 09/24/19 Amoxicillin & Pot Clavulanate [Augmentin Tab] 875 mg PO BID #20 tab 02/06/20 predniSONE [Prednisone] 20 mg PO DAILY #5 tab 02/06/20 Review of Systems - Review of Systems Constitutional: States: no symptoms reported EENTM: States: ear pain Respiratory: States: no symptoms reported Cardiology: States: no symptoms reported Gastrointestinal/Abdominal: States: no symptoms reported Genitourinary: States: no symptoms reported Musculoskeletal: States: no symptoms reported Skin: States: no symptoms reported Neurological: States: no symptoms reported Endocrine: States: no symptoms reported All other Systems: No Change from Baseline Past Medical History (General) - Patient Medical History Hx Seizures: No Hx Stroke: No Hx Dementia: No Hx Asthma: Yes Hx of COPD: No Hx Cardiac Disorders: No Hx Congestive Heart Failure: No Hx Pacemaker: No Hx Hypertension: No Hx Thyroid Disease: No Hx Diabetes: No Hx Gastroesophageal Reflux: No Hx Renal Disease: No Hx Cancer: No Hx of HIV: No Hx Hepatitis C: No Hx MRSA: No - Vaccination History Hx Tetanus, Diphtheria Vaccination: Yes Hx Influenza Vaccination: Yes Hx Pneumococcal Vaccination: No - Social History Hx Tobacco Use: No Hx Chewing Tobacco Use: No Hx Alcohol Use: No Hx Substance Use: No Hx Substance Use Treatment: No Hx Depression: Yes Hx Physical Abuse: No Hx Emotional Abuse: No Hx Suspected Abuse: No - Activities of Daily Living Hospice Agency (if applicable):: None - Female History Patient : No - Triage Comment ED Triage Comment: pt voices left ear pain that originated this morning. pt voices she had left ear pain with ear infection about 3 months and was given ear drops. Family Medical History - Family History Mother Living Status: Still Living Hx Family Hypertension: Yes Hx Family Diabetes: Yes Physical Exam - Physical Exam General Appearance: Alert, Comfortable, No apparent distress Eye Exam: bilateral normal Ears, Nose, Throat: hearing grossly normal, normal pharynx, other - see hpi Neck: full range of motion, supple Respiratory: lungs clear, normal breath sounds, no respiratory distress, no accessory muscle use Cardiovascular/Chest: normal peripheral pulses, regular rate, rhythm, no edema Peripheral Pulses: radial,right: 2+, radial,left: 2+ Rectal Exam: deferred Extremity: normal range of motion, no pedal edema, normal capillary refill 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 No evidence of any mastoiditis. Mild asymmetry of the left parotid gland, however this is not consistent with the area of her pain and there is no palpable deformity in this area on exam. Progress - Progress Progress: 02/06/20 09:51 The patient is a 34-year-old female with a history of recurrent left ear infections. CT scan was done to rule out mastoiditis. There does not appear to be any mastoiditis on the scan. The patient has been to be written for 10 days of Augmentin as well as 5 days of oral prednisone. She can additionally take Aleve [id number] for discomfort. Once daily Zyrtec for the next week may also help. ER warnings are given. [email or web address] [id number] Departure - Departure Clinical Impression: Otitis media Qualifiers: Otitis media type: suppurative Chronicity: acute Laterality: left Recurrence: recurrent Spontaneous tympanic membrane rupture: without spontaneous rupture Qualified Code(s): H66.005 - Acute suppurative otitis media without spontaneous rupture of ear drum, recurrent, left ear Disposition: Discharge to Home or Self Care Condition: Fair Departure Forms: ED Discharge - Pt. Copy, Patient Portal Self Enrollment Instructions: DI for Ear Pain-Adult Diet: regular diet Activity: increase activity as tolerated Referrals: Joni Acosta MD [Primary Care Provider] - 1-2 Weeks Prescriptions: Amoxicillin & Pot Clavulanate [Augmentin Tab] 875 mg PO BID #20 tab predniSONE [Prednisone] 20 mg PO DAILY #5 tab Home Medications: Ambulatory Orders Zolpidem Tartrate [Ambien] 10 mg PO BEDTIME 08/26/18 LORazepam [Ativan] 1 mg PO BID 04/17/19 Oxcarbazepine [Trileptal] 600 mg PO BEDTIME 05/27/19 Clotrimazole (Topical) [Clotrimazole Antifungal] 1 applic TOP BID 14 Days #1 tube 09/17/19 Fluconazole [Diflucan] 150 mg PO WKLY #4 tab 09/24/19 HYDROcodone 5MG/APAP 325MG [[place] 5/325] 1 ea PO 09/24/19 Amoxicillin & Pot Clavulanate [Augmentin Tab] 875 mg PO BID #20 tab 02/06/20 predniSONE [Prednisone] 20 mg PO DAILY #5 tab 02/06/20 Additional Instructions: The patient is a 34-year-old female with a history of recurrent left ear infections. CT scan was done to rule out mastoiditis. There does not appear to be any mastoiditis on the scan. The patient has been to be written for 10 days of Augmentin as well as 5 days of oral prednisone. She can additionally take Aleve [id number] for discomfort. Once daily Zyrtec for the next week may also help. ER warnings are given.
[2020-02-06] MEDS: AMOXICILLIN & POT CLAVULANATE 875 MG TAB PO ONE (09:52)
[2020-02-06 10:04] VITALS: BP 103/66
== END 2020-02-06 10:03 | disposition home or self-care (01) ==
LOC: ER 08:12
DX: H66.005 Acute suppurative otitis media without spontaneous rupture of ear drum, recurrent, left ear (principal); R11.0 Nausea

== ENCOUNTER 2020-03-08 | Emergency (ER) | payer BC ==
--- NOTE | 2020-03-08 15:04 | ED.PDOC ---
History of Present Illness - General Chief Complaint: ENT Problem Stated Complaint: Bilat ear pain x 3 days Time Seen by Provider: 03/08/20 15:01 Source: patient Exam Limitations: no limitations - History of Present Illness Initial Comments: The patient is a 34-year-old female presented emergency room secondary to feeling of bilateral ear pain. The patient has had a history of somewhat recurrent acute otitis externa. Bilateral ear canals are mildly erythemic and painful. No significant exudate. Tissue actually looks really dry. Ear drums are clear. No fever. Oropharynx is clear. Nares are clear. Symptoms have been worsening over the last 2 days. The patient has had a history of very severe otitis externa in the past and does not want to have that happen again. No mastoid tenderness to palpation. Timing/Duration: other - 3 days Severity: mild Improving Factors: nothing Worsening Factors: nothing Associated Symptoms: denies symptoms Allergies/Adverse Reactions: Allergies Sulfa Drugs Allergy (Intermediate, Verified 02/06/20 08:28) Levofloxacin [From Levaquin] Allergy (Verified 02/06/20 08:28) Diphenhydramine [From Benadryl] Adverse Reaction (Verified 02/06/20 08:28) Home Medications: Ambulatory Orders Zolpidem Tartrate [Ambien] 10 mg PO BEDTIME 08/26/18 LORazepam [Ativan] 1 mg PO BID 04/17/19 HYDROcodone 5MG/APAP 325MG [[place] 5/325] 1 ea PO PRN PRN 09/24/19 Asael/Poly/Hc Otic Susp [Cortisporin Otic Susp] 4 drop BOTH_EARS Q6H #10 days 03/08/20 Review of Systems - Review of Systems Constitutional: States: no symptoms reported EENTM: States: ear pain Respiratory: States: no symptoms reported Cardiology: States: no symptoms reported Gastrointestinal/Abdominal: States: no symptoms reported Genitourinary: States: no symptoms reported Musculoskeletal: States: no symptoms reported Skin: States: no symptoms reported Neurological: States: no symptoms reported Endocrine: States: no symptoms reported All other Systems: No Change from Baseline Past Medical History (General) - Patient Medical History Hx Seizures: No Hx Stroke: No Hx Dementia: No Hx Asthma: Yes Hx of COPD: No Hx Cardiac Disorders: No Hx Congestive Heart Failure: No Hx Pacemaker: No Hx Hypertension: No Hx Thyroid Disease: No Hx Diabetes: No Hx Gastroesophageal Reflux: No Hx Renal Disease: No Hx Cancer: No Hx of HIV: No Hx Hepatitis C: No Hx MRSA: No Surgical History: other - Vaccination History Hx Tetanus, Diphtheria Vaccination: No Hx Influenza Vaccination: Yes Hx Pneumococcal Vaccination: No - Social History Hx Tobacco Use: No Hx Chewing Tobacco Use: No Hx Alcohol Use: No Hx Substance Use: No Hx Substance Use Treatment: No Hx Depression: Yes Hx Physical Abuse: No Hx Emotional Abuse: No Hx Suspected Abuse: No - Female History Patient is a Female of Child Bearing Age (10 -59 yrs old): Yes Patient : No - IUD Family Medical History - Family History Mother Living Status: Still Living Hx Family Hypertension: Yes Hx Family Diabetes: Yes Physical Exam - Physical Exam General Appearance: Alert, Comfortable, No apparent distress Eye Exam: bilateral normal Ears, Nose, Throat: hearing grossly normal, normal pharynx, other - See history of present illness Neck: non-tender, supple Respiratory: no respiratory distress, no accessory muscle use Cardiovascular/Chest: normal peripheral pulses, no edema Peripheral Pulses: radial,right: 2+, radial,left: 2+ Rectal Exam: deferred Extremity: normal range of motion, no pedal edema, normal capillary refill 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 The patient was placed on Cortisporin Otic drops. When she completes the course of this I do recommend that she apply a small amount of mineral oil to each ear canal once every week or 2 to help prevent dryness and cracking, which will hopefully prevent further episodes. Motrin can additionally be used for discomfort. ER warnings are given. [email or web address] [id number] Departure - Departure Clinical Impression: Otitis externa Qualifiers: Otitis externa type: unspecified type Chronicity: acute Laterality: bilateral Qualified Code(s): H60.503 - Unspecified acute noninfective otitis externa, bilateral Disposition: Discharge to Home or Self Care Condition: Fair Departure Forms: ED Discharge - Pt. Copy, Patient Portal Self Enrollment Instructions: DI for Ear Pain-Adult Diet: regular diet Activity: increase activity as tolerated Referrals: Joni Acosta MD [Primary Care Provider] - 1-2 Weeks Prescriptions: Asael/Poly/Hc Otic Susp [Cortisporin Otic Susp] 4 drop BOTH_EARS Q6H #10 days Home Medications: Ambulatory Orders Zolpidem Tartrate [Ambien] 10 mg PO BEDTIME 08/26/18 LORazepam [Ativan] 1 mg PO BID 04/17/19 HYDROcodone 5MG/APAP 325MG [[place] 5/325] 1 ea PO PRN PRN 09/24/19 Asael/Poly/Hc Otic Susp [Cortisporin Otic Susp] 4 drop BOTH_EARS Q6H #10 days 03/08/20 Additional Instructions: Patient is a 34-year-old female with a history of recurrent otitis externa presenting secondary to what appears to be very early otitis externa bilaterally. The patient was placed on Cortisporin Otic drops. When she completes the course of this I do recommend that she apply a small amount of mineral oil to each ear canal once every week or 2 to help prevent dryness and cracking, which will hopefully prevent further episodes. Motrin can additionally be used for discomfort. ER warnings are given.
== END 2020-03-08 15:12 | disposition home or self-care (01) ==
DX: H60.503 Unspecified acute noninfective otitis externa, bilateral (principal)

== ENCOUNTER 2020-06-26 15:55 | Emergency (ER) | payer BC ==
[2020-06-26 16:10] VITALS: O2SAT 99
--- NOTE | 2020-06-26 16:30 | ED.PDOC ---
History of Present Illness - General Chief Complaint: ENT Problem Stated Complaint: Bilateral ear pain Time Seen by Provider: 06/26/20 16:29 Source: patient - History of Present Illness Initial Comments: 34-year-old female who presents with chief complaint of bilateral ear pain. Onset 1 week ago with gradual worsening. She reports history of frequent ear infections in the past. Reports the pain is located to both ears but is worse in the left ear. Describes as a constant dull pain, rates as 7/10 severity, worse with palpation of the ear and lying on the left side, reports she has been taking some leftover Augmentin twice daily for the past 4 days as well as applying some topical antibiotic eardrops that she had leftover from previous visits with little relief. Denies any discharge/drainage from the ear. Denies any fevers, chills, sore throat, congestion, rhinorrhea, sinus pain. She reports since the weather is getting colder she is having some seasonal allergy symptoms and usually gets ear infections this time of year. Reports she has not taken any ibuprofen or Tylenol because this does not do anything for her ear pain usually. She was unable to go to work tonight because of the ear pain so she came to the ER. Allergies/Adverse Reactions: Allergies Sulfa Drugs Allergy (Intermediate, Verified 06/26/20 16:10) Levofloxacin [From Levaquin] Allergy (Verified 06/26/20 16:10) Diphenhydramine [From Benadryl] Adverse Reaction (Verified 06/26/20 16:10) Home Medications: Ambulatory Orders HYDROcodone 5MG/APAP 325MG [[place] 5/325] 1 ea PO PRN PRN 09/24/19 Amoxicillin & Pot Clavulanate [Augmentin Tab] 875 mg PO BID 5 Days #10 tab 06/26/20 Review of Systems - Review of Systems Review of Systems: 06/26/20 16:46 as per HPI All other Systems: Reviewed and Negative Past Medical History (General) - Patient Medical History Hx Seizures: No Hx Stroke: No Hx Dementia: No Hx Asthma: Yes Hx of COPD: No Hx Cardiac Disorders: No Hx Congestive Heart Failure: No Hx Pacemaker: No Hx Hypertension: No Hx Thyroid Disease: No Hx Diabetes: No Hx Gastroesophageal Reflux: No Hx Renal Disease: No Hx Cancer: No Hx of HIV: No Hx Hepatitis C: No Hx MRSA: No Surgical History: no surgical history - Vaccination History Hx Tetanus, Diphtheria Vaccination: No Hx Influenza Vaccination: Yes Hx Pneumococcal Vaccination: No - Social History Hx Tobacco Use: No Hx Chewing Tobacco Use: No Hx Alcohol Use: No Hx Substance Use: No Hx Substance Use Treatment: No Hx Depression: No Hx Physical Abuse: No Hx Emotional Abuse: No Hx Suspected Abuse: No - Female History Patient is a Female of Child Bearing Age (10 -59 yrs old): No Patient : No Family Medical History - Family History Mother Living Status: Still Living Hx Family Hypertension: Yes Hx Family Diabetes: Yes Physical Exam - Physical Exam General Appearance: Alert, Comfortable, No apparent distress Eye Exam: bilateral normal Ears, Nose, Throat: hearing grossly normal, other - Left tympanic membrane with very mild erythema but without bulging or dullness. Right TM appears normal. Bilateral canals appear normal Neck: non-tender, full range of motion, supple, normal inspection Respiratory: lungs clear, normal breath sounds, no respiratory distress, no accessory muscle use Cardiovascular/Chest: normal peripheral pulses, regular rate, rhythm, no edema, no gallop, no JVD, no murmur Peripheral Pulses: radial,right: 2+, radial,left: 2+ Gastrointestinal/Abdominal: non tender, soft, no organomegaly Extremity: normal inspection Neurologic: no motor/sensory deficits, alert, oriented x 3 Skin Exam: normal color Progress - Progress Progress: 06/26/20 16:47 Bilateral ear pain -Consider seasonal allergy symptoms most likely. Consider also otitis media, although the bilateral tympanic membranes have pretty good appearance with only minimal erythema on the left side. Given her history and reported significant pain, will treat with continued Augmentin twice daily for another 5 days. We will also give Decadron 8 mg IM in the ER. Advised continued supportive care and pain management with [id number] medications at home. Advised that she will need to follow-up with her PCP for outpatient ENT referral for recurrent ear issues. -Discharged home in good condition, return warnings discussed Negro Burger MD Billing #[id number] Departure - Departure Clinical Impression: Otitis media of left ear Qualifiers: Otitis media type: unspecified Qualified Code(s): H66.92 - Otitis media, unspecified, left ear Time of Disposition: 16:48 Disposition: Discharge to Home or Self Care Condition: Good Departure Forms: ED Discharge - Pt. Copy, Patient Portal Self Enrollment Instructions: DI for Ear Pain-Adult, Serous Otitis Media (DC) Diet: resume usual diet Activity: increase activity as tolerated Referrals: Joni Acosta MD [Primary Care Provider] - 1-2 Weeks Prescriptions: Amoxicillin & Pot Clavulanate [Augmentin Tab] 875 mg PO BID 5 Days #10 tab Home Medications: Ambulatory Orders HYDROcodone 5MG/APAP 325MG [[place] 5/325] 1 ea PO PRN PRN 09/24/19 Amoxicillin & Pot Clavulanate [Augmentin Tab] 875 mg PO BID 5 Days #10 tab 06/26/20 Additional Instructions: Take the antibiotics as directed and finish the full course. You may continue take [id number] medications as needed for pain such as ibuprofen 800 mg every 6-8 hours and Tylenol 650 mg every 6 hours. Follow-up with your primary care physician is recommended in the next 1 to 2 weeks for repeat evaluation. You may need outpatient referral to ENT for chronic ear pain issues.
[2020-06-26] MEDS ORDERED: AMOXICILLIN & POT CLAVULANATE 875 MG TAB PO ONE (16:43)
[2020-06-26] MEDS ORDERED: DEXAMETHASONE INJ 4 MG/ML VIAL IM ONE (16:43)
[2020-06-26 17:23] VITALS: BP 120/75; TEMP 98.6
== END 2020-06-26 17:23 | disposition home or self-care (01) ==
LOC: ER 15:55
DX: H66.92 Otitis media, unspecified, left ear (principal); J45.909 Unspecified asthma, uncomplicated; Z88.2 Allergy status to sulfonamides; Z88.8 Allergy status to other drugs, medicaments and biological substances

== ENCOUNTER 2020-08-08 11:59 | Emergency (ER) | payer BC ==
--- NOTE | 2020-08-08 12:10 | ED.PDOC ---
History of Present Illness - General Chief Complaint: Neck Injury/Pain Time Seen by Provider: 08/08/20 12:05 - History of Present Illness Initial Comments: PATIENT STATES SHE HAS ACUTE ONSET OF RIGHT SIDED NECK MASS AND DISCOMFORT THIS MORNING, SHE DENIES OTHER SYMPTOMS OR PRIOR HISTORY OF SIMILAR. DENIES F/C/N/V/D Improving Factors: nothing Worsening Factors: nothing Associated Symptoms: denies symptoms Allergies/Adverse Reactions: Allergies Sulfa Drugs Allergy (Intermediate, Verified 08/08/20 12:11) Levofloxacin [From Levaquin] Allergy (Verified 08/08/20 12:11) Diphenhydramine [From Benadryl] Adverse Reaction (Verified 08/08/20 12:11) Home Medications: Ambulatory Orders HYDROcodone 5MG/APAP 325MG [[place] 5/325] 1 ea PO PRN PRN 09/24/19 Amoxicillin & Pot Clavulanate [Augmentin Tab] 875 mg PO BID 5 Days #10 tab 06/26/20 Review of Systems - Review of Systems Constitutional: States: no symptoms reported EENTM: States: see HPI Respiratory: States: no symptoms reported Cardiology: States: no symptoms reported Gastrointestinal/Abdominal: States: no symptoms reported Genitourinary: States: no symptoms reported Musculoskeletal: States: no symptoms reported Skin: States: no symptoms reported Endocrine: States: no symptoms reported Past Medical History (General) - Patient Medical History Hx Seizures: No Hx Stroke: No Hx Dementia: No Hx Asthma: Yes Hx of COPD: No Hx Cardiac Disorders: No Hx Congestive Heart Failure: No Hx Pacemaker: No Hx Hypertension: No Hx Thyroid Disease: No Hx Diabetes: No Hx Gastroesophageal Reflux: No Hx Renal Disease: No Hx Cancer: No Hx of HIV: No Hx Hepatitis C: No Hx MRSA: No - Vaccination History Hx Tetanus, Diphtheria Vaccination: No Hx Influenza Vaccination: Yes Hx Pneumococcal Vaccination: No - Social History Hx Tobacco Use: No Hx Chewing Tobacco Use: No Hx Alcohol Use: No Hx Substance Use: No Hx Substance Use Treatment: No Hx Depression: No Hx Physical Abuse: No Hx Emotional Abuse: No Hx Suspected Abuse: No - Female History Patient : No Family Medical History - Family History Mother Living Status: Still Living Hx Family Hypertension: Yes Hx Family Diabetes: Yes Physical Exam - Physical Exam General Appearance: Alert, Anxious, Comfortable Eye Exam: bilateral normal Ears, Nose, Throat: hearing grossly normal, other - 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, MASS ON RIGHT SIDE OF NECK, JUST LATERAL TO THYROID CARTILAGE Respiratory: chest non-tender, lungs clear, normal breath sounds Cardiovascular/Chest: normal peripheral pulses, regular rate, rhythm, no edema Gastrointestinal/Abdominal: normal bowel sounds, non tender, soft, no organomegaly Progress - Progress Progress: 08/08/20 14:25 DISCUSSED WITH RADIOLOGIST, HE FEELS ITS A THYROID MASS, POSSIBLY A BLEED INTO A THYROID CYST Departure - Departure Clinical Impression: Thyroid cyst, Thyromegaly Time of Disposition: 14:26 Disposition: Discharge to Home or Self Care Departure Forms: ED Discharge - Pt. Copy, Patient Portal Self Enrollment Instructions: DI for Neck Pain, Thyroid Uptake and Scan, Thyroid Nodules Referrals: Joni Acosta MD [Primary Care Provider] - 1-2 Weeks Home Medications: Ambulatory Orders HYDROcodone 5MG/APAP 325MG [[place] 5/325] 1 ea PO PRN PRN 09/24/19 Amoxicillin & Pot Clavulanate [Augmentin Tab] 875 mg PO BID 5 Days #10 tab 06/26/20 Additional Instructions: RECOMMEND THAT YOU FOLLOW UP WITH YOUR PCP, RECOMMEND THYROID FUNCTION TEST, THY ROID ULTRASOUND AND POSSIBLE THYROID NUCLEAR MEDICINE SCAN IF YOUR DOCTOR FEELS ALL IS WARRANTED. THERE IS NOT AN EMERGENCY MEDICAL CONDITION PRESENT. ROUTINE FOLLOW UP AND EVALUATION OF THIS IS APPROPRIATE. ONLY PAIN MEDICATION THAT WOULD BE RECOMMENDED WOULD BE OTC IBUPROFEN 800 MG THREE TIMES PER DAY NEEDED.
[2020-08-08 13:48] VITALS: TEMP 97.7
--- NOTE | 2020-08-08 14:27 | CT ---
EXAM DESCRIPTION: CT soft tissue neck with contrast CLINICAL HISTORY: CERVICAL MASS. By history patient woke up today morning with tender palpable mass on the right side at the level of the thyroid cartilage. Pain while swallowing. COMPARISON: Thyroid ultrasound March 22, 2018 TECHNIQUE: CT examination of the soft tissue neck is performed on a multi-detector scanner after intravenous contrast administration. 100 cc of Omnipaque-300 was injected. Sagittal and coronal formations are obtained. The reported DLP in mGy*cm is 261. Automatic exposure control (A EC), mA and/or kV adjustment by patient size, and/or iterative reconstructive technique was used, per departmental dose optimization program, during the performance of the CT examination. FINDINGS: The included paranasal sinuses demonstrate no abnormalities. Normal appearance of the mastoid air cells are noted. Soft tissues of the face appears unremarkable without any swelling. Normal appearance of the submandibular and parotid salivary glands are noted without any evidence of enlargement, abnormal enhancement, focal masses or calcifications. Thyroid gland is enlarged measuring 5.5 x 2.2 x 3.5 cm in size. The left thyroid lobe measures 6.2 x 2 x 2.7 cm in size. Evidence of multinodular goiter is noted. Presence of a cyst in the right thyroid lobe with suggestion of layering debris and focal cyst wall calcification, measuring 2.1 x 1.7 x 2.3 cm in size is noted. In the left thyroid lobe inferiorly, presence of a complex cyst or a spongiform nodule, measures 2.4 x 2.1 x 1.9 cm in size. The cystic lesion in the right thyroid lobe appears to be a new finding, compared to prior examination of March 2018 ultrasound.. Normal appearance of the vocal cords, subglottic trachea and epiglottis are noted. The included portions of the mediastinum and lung apices are unremarkable. There is no evidence of cervical lymphadenopathy. Normal appearance of the carotid and jugular vessels are noted. The prevertebral soft tissues are normal. The cervical spine and intervertebral disc spaces are essentially unremarkable. IMPRESSION: Findings consistent with bilateral thyromegaly with findings most consistent with multinodular goiter. A right thyroid lobe cyst with suggestion of a degree could represent a cyst with internal hemorrhage or recent interval increase in size, corresponding to the palpable mass described by the patient. A follow-up thyroid ultrasound examination is recommended in 3-6 months. Correlation with thyroid function tests is also recommended. With contrast Electronically signed by: Tamika Mejía MD 08/08/2020 2:13 PM [facility]
[2020-08-08 14:43] VITALS: BP 129/77; O2SAT 99
== END 2020-08-08 14:43 | disposition home or self-care (01) ==
LOC: ER 11:59
DX: E04.1 Nontoxic single thyroid nodule (principal); J45.909 Unspecified asthma, uncomplicated; Z88.2 Allergy status to sulfonamides; Z88.1 Allergy status to other antibiotic agents; Z88.8 Allergy status to other drugs, medicaments and biological substances